=== PATIENT | male | born 1960 | race African-American/Black ===

== ENCOUNTER 2016-03-28 15:27 | Observation (INO) | payer OTHER ==
[2016-03-28 15:37] VITALS: BMI 33.5
[2016-03-28] MEDS ORDERED: KETOROLAC TROMETHAMINE 30 MG/1 ML VIAL IVPUSH ONE (17:04)
[2016-03-28] MEDS ORDERED: KETOROLAC TROMETHAMINE 30 MG/1 ML VIAL ONE (17:18)
[2016-03-28] MEDS ORDERED: KETOROLAC TROMETHAMINE 30 MG/1 ML VIAL IM ONE (17:32)
[2016-03-28 17:38] LABS: BASOPHIL 0.4 % (0-2.0); EOSINOPHIL 0.2 % (0-4.5); MCH 27.7 pg (25.7-33.7); MCHC 31.7 g/dl (32.0-35.9); MEAN CELL VOLUME 87.2 fl (80-96); MEAN PLT VOLUME 8.2 fl (7.5-11.1); NEUTROPHILS 76.3 % (42.8-82.8); PLATELET COUNT 305 K/MM3 (134-434); RDW 13.7 % (11.9-15.9); WHITE BLOOD COUNT 8.9 K/mm3 (4.0-10.0)
[2016-03-28 18:02] LABS: ALBUMIN 3.9 g/dl (3.4-5.0); ANION GAP 3 (8-16); CALCIUM 8.8 mg/dL (8.5-10.1); CO2 29 mmol/L (21-32); CREATININE 1.1 mg/dL (0.7-1.3); GLUCOSE,RANDOM 96 mg/dL (74-106); SGOT/AST 17 U/L (15-37); SGPT/ALT 21 U/L (12-78); URIC ACID 6.3 mg/dL (2.6-7.2)
[2016-03-28 18:03] LABS: ALK PHOS 60 U/L (45-117); BILIRUBIN,TOTAL 0.4 mg/dL (0.2-1.0); TOT PROT 7.1 g/dl (6.4-8.2)
--- NOTE | 2016-03-28 18:05 | PDOC ---
History of Present Illness - General History Source: Patient Exam Limitations: No Limitations - History of Present Illness Initial Comments: 03/28/16 18:44 The patient is a 57-year-old male, with a significant past medical history of gout, hyperlipidemia, and prostate cancer, who presents to the emergency department with left foot swelling and pain since yesterday. The patient states that the left foot swelling has worsened since last night, and he is unable to walk on the left foot due to the swelling, pain, and acid buildup. He reports that he has not taken medications for relief. His last flare of these symptoms was 3 years ago. The patient denies chest pain, shortness of breath, headache and dizziness. The patient denies fever, chills, nausea, vomit, diarrhea and constipation. The patient denies dysuria, frequency, urgency and hematuria. Allergies: codeine, oxycodone Social history: Occasional ETOH use. PMD - Dr. Holly Earl <Jewell Ordoñez - Last Filed: 03/28/16 18:43> <Dorcas Ochoa - Last Filed: 03/28/16 22:03> - General History Source: Patient Exam Limitations: No Limitations <Mar Sharp - Last Filed: 03/31/16 10:32> - General Chief Complaint: Edema Stated Complaint: PAIN Time Seen by Provider: 03/28/16 16:04 Past History <Jewell Ordoñez - Last Filed: 03/28/16 18:43> <Dorcas Ochoa - Last Filed: 03/28/16 22:03> - Past Medical History Cancer: Yes (prostate) GI Disorders: Yes (H/O DIVERTICULITIS) - Surgical History Abdominal Surgery: Yes (COLOSTOMY & REVERSAL) - Immunization History Immunization Up to Date: Yes - Psycho/Social/Smoking Cessation Hx Anxiety: No Suicidal Ideation: No Smoking History: Never smoked Have you smoked in the past 12 months: No Information on smoking cessation initiated: No Hx Alcohol Use: Yes (social) Drug/Substance Use Hx: No Substance Use Type: None Hx Substance Use Treatment: No <Mar Sharp - Last Filed: 03/31/16 10:32> - Past Medical History Allergies/Adverse Reactions: Allergies Allergy/AdvReac Type Severity Reaction Status Date / Time codeine Allergy Mild "makes me Verified 03/28/16 15:37 itch" oxycodone HCl Allergy Mild "gets me Verified 03/28/16 15:37 [From OxyContin] dizzy" Home Medications: Ambulatory Orders Tamsulosin HCl [Flomax -] 0.4 mg PO HS 03/02/15 Indomethacin [Indocin -] 50 mg PO Q8H #28 capsule 03/29/16 Pantoprazole Sodium [Protonix -] 40 mg PO DAILY #10 tablet.ec 03/29/16 Walker [Ultra-Light Rollator] 1 each MC DAILY #1 each 03/29/16 Review of Systems - Review of Systems Able to Perform ROS?: Yes Comments:: 03/28/16 18:46 GENERAL/CONSTITUTIONAL: No: fever, chills, weakness, loss of appetite. HEAD, EYES, EARS, NOSE AND THROAT: No: change in vision, ear pain, discharge, sore throat, throat swelling. CARDIOVASCULAR: No: chest pain, lightheadedness, palpitations, syncope RESPIRATORY: No: cough, shortness of breath, wheezing, hemoptysis, stridor. GASTROINTESTINAL: No: nausea, vomiting, abdominal cramping, diarrhea, rectal bleeding, constipation. GENITOURINARY: No: dysuria, hematuria, frequency, urgency, flank pain. MUSCULOSKELETAL: Present: (+) Left foot swelling, (+) left foot pain No: back pain, neck pain, joint pain SKIN AND BREASTS: No: lesions, pallor, rash or easy bruising. NEUROLOGIC: No: headache, vertigo, paresthesias, weakness ENDOCRINE: No: unexplained weight gain or loss HEMATOLOGIC/LYMPHATIC: No: anemia, easy bleeding, swelling nodes <Ordoñez,Jewell - Last Filed: 03/28/16 18:43> *Physical Exam - Vital Signs Last Vital Signs Temp Pulse Resp BP Pulse Ox 99.8 F H 75 18 136/84 99 03/28/16 15:35 03/28/16 15:35 03/28/16 15:35 03/28/16 15:35 03/28/16 15:35 - Physical Exam Comments: 03/28/16 18:46 GENERAL: The patient is in no acute distress. HEAD: Normal with no signs of trauma. EYES: PERRLA, EOMI, sclera anicteric, conjunctiva clear. ENT: Ears normal, nares patent, oropharynx clear without exudates. Moist mucous membranes. NECK: Normal range of motion, supple without lymphadenopathy, JVD, or masses. LUNGS: Breath sounds equal, clear to auscultation bilaterally. No wheezes, and no crackles. HEART:Regular rate and rhythm, normal S1 and S2 without murmur, rub or gallop. ABDOMEN: Soft, nontender, normoactive bowel sounds. No guarding, no rebound. EXTREMITIES: (+) Left ankle swelling, left toe swelling, mild erythema, pain with motion, DP 2+. No clubbing or cyanosis. NEUROLOGICAL: Cranial nerves II through XII grossly intact. Normal speech. No focal neurological deficits. MUSCULOSKELETAL: Back non-tender to palpation, no CVA tenderness SKIN: Warm, Dry, normal turgor, no rashes or lesions noted. <Jewell Ordoñez - Last Filed: 03/28/16 18:43> - Vital Signs Last Vital Signs Temp Pulse Resp BP Pulse Ox 99.8 F H 75 18 136/84 99 03/28/16 15:35 03/28/16 15:35 03/28/16 15:35 03/28/16 15:35 03/28/16 15:35 <Dorcas Ochoa - Last Filed: 03/28/16 22:03> - Vital Signs Last Vital Signs Temp Pulse Resp BP Pulse Ox 99.8 F H 75 18 136/84 99 03/28/16 15:35 03/28/16 15:35 03/28/16 15:35 03/28/16 15:35 03/28/16 15:35 <Mar Sharp - Last Filed: 03/31/16 10:32> ED Treatment Course - LABORATORY CBC & Chemistry Diagram: 03/28/16 17:22 03/28/16 17:22 - ADDITIONAL ORDERS Additional order review: Laboratory Results 03/28/16 17:22 Sodium 137 Potassium 4.2 Chloride 105 Carbon Dioxide 29 Anion Gap 3 L BUN 20 H Creatinine 1.1 Creat Clearance w eGFR > 60 Random Glucose 96 Uric Acid 6.3 Calcium 8.8 Total Bilirubin 0.4 D AST 17 ALT 21 D Alkaline Phosphatase 60 Total Protein 7.1 Albumin 3.9 03/28/16 17:22 RBC 4.73 MCV 87.2 MCHC 31.7 L RDW 13.7 MPV 8.2 Neutrophils % 76.3 Lymphocytes % 17.3 D Monocytes % 5.8 Eosinophils % 0.2 D Basophils % 0.4 - Medications Given in the ED: ED Medications Discontinued Medications Generic Name Dose Route Start Last Admin Trade Name Freq PRN Reason Stop Dose Admin Ketorolac Tromethamine 30 mg 03/28/16 17:04 03/28/16 17:33 Toradol Injection - IVPUSH 03/28/16 17:05 Not Given ONCE ONE Ketorolac Tromethamine 30 mg 03/28/16 17:32 03/28/16 17:32 Toradol Injection - IM 03/28/16 17:33 30 mg NOW ONE Administration <Jewell Ordoñez - Last Filed: 03/28/16 18:43> - LABORATORY CBC & Chemistry Diagram: 03/28/16 17:22 03/28/16 17:22 - ADDITIONAL ORDERS Additional order review: Laboratory Results 03/28/16 17:22 Sodium 137 Potassium 4.2 Chloride 105 Carbon Dioxide 29 Anion Gap 3 L BUN 20 H Creatinine 1.1 Creat Clearance w eGFR > 60 Random Glucose 96 Uric Acid 6.3 Calcium 8.8 Total Bilirubin 0.4 D AST 17 ALT 21 D Alkaline Phosphatase 60 Total Protein 7.1 Albumin 3.9 03/28/16 17:22 RBC 4.73 MCV 87.2 MCHC 31.7 L RDW 13.7 MPV 8.2 Neutrophils % 76.3 Lymphocytes % 17.3 D Monocytes % 5.8 Eosinophils % 0.2 D Basophils % 0.4 - Medications Given in the ED: ED Medications Discontinued Medications Generic Name Dose Route Start Last Admin Trade Name Freq PRN Reason Stop Dose Admin Ketorolac Tromethamine 30 mg 03/28/16 17:04 03/28/16 17:33 Toradol Injection - IVPUSH 03/28/16 17:05 Not Given ONCE ONE Ketorolac Tromethamine 30 mg 03/28/16 17:32 03/28/16 17:32 Toradol Injection - IM 03/28/16 17:33 30 mg NOW ONE Administration <Dorcas Ochoa - Last Filed: 03/28/16 22:03> - LABORATORY CBC & Chemistry Diagram: 03/29/16 06:00 03/29/16 06:00 - ADDITIONAL ORDERS Additional order review: Laboratory Results 03/28/16 17:22 Sodium 137 Potassium 4.2 Chloride 105 Carbon Dioxide 29 Anion Gap 3 L BUN 20 H Creatinine 1.1 Creat Clearance w eGFR > 60 Random Glucose 96 Uric Acid 6.3 Calcium 8.8 Total Bilirubin 0.4 D AST 17 ALT 21 D Alkaline Phosphatase 60 Total Protein 7.1 Albumin 3.9 03/28/16 17:22 RBC 4.73 MCV 87.2 MCHC 31.7 L RDW 13.7 MPV 8.2 Neutrophils % 76.3 Lymphocytes % 17.3 D Monocytes % 5.8 Eosinophils % 0.2 D Basophils % 0.4 - RADIOLOGY Radiology Studies Ordered: Category Date Time Status ANKLE & FOOT-LEFT* [RAD] Stat Radiology 03/28/16 16:58 Taken - Medications Given in the ED: ED Medications Discontinued Medications Generic Name Dose Route Start Last Admin Trade Name Hua PRN Reason Stop Dose Admin Ketorolac Tromethamine 30 mg 03/28/16 17:04 03/28/16 17:33 Toradol Injection - IVPUSH 03/28/16 17:05 Not Given ONCE ONE Ketorolac Tromethamine 30 mg 03/28/16 17:32 03/28/16 17:32 Toradol Injection - IM 03/28/16 17:33 30 mg NOW ONE Administration <Mar Sharp - Last Filed: 03/31/16 10:32> Medical Decision Making - Medical Decision Making 03/28/16 20:21 Patient Name: Ricki Larkin THIS IS A PRELIMINARY REPORT FROM [facility] EXAM: Left ankle X-rays, 3 views and left foot x-rays, 3 views IMAGES: 5 DATE OF EXAM: 2016-03-28 17:39:21.0 REASON FOR EXAM: Pain COMPARISON: None Findings: Hallux valgus with bunion. Degenerative changes noted. Moderate soft tissue edema around the ankle and foot. There may be an old fracture of the middle phalanx of the little toe. No acute fracture or radiopaque foreign body. THIS DOCUMENT HAS BEEN ELECTRONICALLY SIGNED <Dorcas Ochoa - Last Filed: 03/28/16 22:03> - Medical Decision Making 03/28/16 18:05 A portion of this note was documented by scribe services under my direction. I have reviewed the details of the note, within reason, and agree with the documentation with the following case summary and management plan written by me. Nursing documentation reviewed and incorporated into medical decision making 03/28/16 18:07 Laboratory Tests 03/28/16 03/28/16 17:22 17:22 WBC 8.9 Hgb 13.1 Hct 41.3 Plt Count 305 Neutrophils % 76.3 Lymphocytes % 17.3 D Sodium 137 Potassium 4.2 Chloride 105 Carbon Dioxide 29 BUN 20 H Creatinine 1.1 Random Glucose 96 Xray pending Pt given Toradol Will re assess Pending Uric Acid Pt signed out to Dr. Ochoa <Mar Sharp - Last Filed: 03/31/16 10:32> *DC/Admit/Observation/Transfer - Attestations Scribe Attestion: 03/28/16 18:47 Documentation prepared by Jewell Ordoñez, acting as medical assistant per diem for Mar Sharp MD. <Jewell Ordoñez - Last Filed: 03/28/16 18:43> - Discharge Dispostion Admit: Yes <Dorcas Ochoa - Last Filed: 03/28/16 22:03> <Mar Sharp - Last Filed: 03/31/16 10:32> Diagnosis at time of Disposition: Cellulitis of foot, Inability to ambulate due to ankle or foot, Swelling of foot joint - Discharge Dispostion Condition at time of disposition: Stable - Prescriptions - Referrals
[2016-03-28] MEDS ORDERED: CEFAZOLIN 1 GM in DEXTROSE 5%-WATER - 50 ML IVPB ONE (20:56)
--- NOTE | 2016-03-28 21:08 | HP ---
CHIEF COMPLAINT: Left foot, ankle pain, swelling PCP: Dr. Holly Earl HISTORY OF PRESENT ILLNESS: This is a 55 year old male with a past medical history of Gout (no meds, last flare 3 yrs ago), HLD, Prostate Cancer (treated with seed implantation), Diverticulitis. PSHx of: Intestinal Resection, Colostomy, Colostomy Reversal. Who presents to the emergency department with pain, swelling x 2 days and inability to ambulate and bear weight x today. Patient reports drinking to beers which he attributes to "Gout Flare". Patient denies trauma, fall or insect bite. Patient denies fever, chills, cough, SOB, CP, AP, N/V/D, constipation, melena, hematuria, dysuria ER course was notable for: (1) T Max 99.8 (2) Xray Left ankle/foot~ moderate soft tissue edema around ankle, foot. No acute fx or radiopaque FB (3) Recent Travel: None PAST MEDICAL HISTORY: See HPI PAST SURGICAL HISTORY: See HPI Social History: Smoking: None Alcohol: Occasional Beer Drugs: None Family History: Mother: Lung Ca, Brother: Prostate Ca, Allergies codeine Allergy (Mild, Verified 03/28/16 15:37) "makes me itch" oxycodone HCl [From OxyContin] Allergy (Mild, Verified 03/28/16 15:37) "gets me dizzy" HOME MEDICATIONS: Medication Instructions Recorded Tamsulosin HCl [Flomax -] 0.4 mg PO HS 03/02/15 Acetaminophen [Tylenol -] 500 mg PO Q6H #100 tablet 06/29/15 REVIEW OF SYSTEMS CONSTITUTIONAL: Absent: fever, chills, diaphoresis, generalized weakness, malaise, loss of appetite, weight change HEENT: Absent: rhinorrhea, nasal congestion, throat pain, throat swelling, difficulty swallowing, mouth swelling, ear pain, eye pain, visual changes CARDIOVASCULAR: Absent: chest pain, syncope, palpitations, irregular heart rate, lightheadedness , peripheral edema RESPIRATORY: Absent: cough, shortness of breath, dyspnea with exertion, orthopnea, wheezing, stridor, hemoptysis GASTROINTESTINAL: Absent: abdominal pain, abdominal distension, nausea, vomiting, diarrhea, constipation, melena, hematochezia GENITOURINARY: Absent: dysuria, frequency, urgency, hesitancy, hematuria, flank pain, genital pain MUSCULOSKELETAL: joint swelling, left ankle, foot pain Absent: myalgia, arthralgia, back pain, neck pain SKIN: Absent: rash, itching, pallor HEMATOLOGIC/IMMUNOLOGIC: Absent: easy bleeding, easy bruising, lymphadenopathy, frequent infections ENDOCRINE: Absent: unexplained weight gain, unexplained weight loss, heat intolerance, cold intolerance NEUROLOGIC: Absent: headache, focal weakness or paresthesias, dizziness, unsteady gait, seizure, mental status changes, bladder or bowel incontinence PSYCHIATRIC: Absent: anxiety, depression, suicidal or homicidal ideation, hallucinations. PHYSICAL EXAMINATION Vital Signs - 24 hr 03/28/16 15:35 Temperature 99.8 F H Pulse Rate 75 Respiratory 18 Rate Blood Pressure 136/84 O2 Sat by Pulse 99 Oximetry (%) GENERAL: Awake, alert, and fully oriented, in no acute distress. HEAD: Normal with no signs of trauma. EYES: Pupils equal, round and reactive to light, extraocular movements intact, sclera anicteric, conjunctiva clear. No lid lag. EARS, NOSE, THROAT: Ears normal, nares patent, oropharynx clear without exudates. Moist mucous membranes. NECK: Normal range of motion, supple without lymphadenopathy, JVD, or masses. LUNGS: Breath sounds equal, clear to auscultation bilaterally. No wheezes, and no crackles. No accessory muscle use. HEART: Regular rate and rhythm, normal S1 and S2 without murmur, rub or gallop. ABDOMEN: Soft,obese, nontender, not distended, normoactive bowel sounds, no guarding, no rebound, no masses. No hepatomegaly or splenomegaly. MUSCULOSKELETAL: Normal range of motion at all joints. No bony deformities, + slight swelling to left patellar, +tenderness to left medial ankle and left great toe. No CVA tenderness. UPPER EXTREMITIES: 2+ pulses, warm, well-perfused. No cyanosis. No clubbing. Cap refill <2 seconds. No peripheral edema. LOWER EXTREMITIES: 2+ pulses, warm, well-perfused. No calf tenderness. Left ankle +2 peripheral edema. NEUROLOGICAL: Cranial nerves II-XII intact. Normal speech. Normal gait. PSYCHIATRIC: Cooperative. Good eye contact. Appropriate mood and affect. SKIN: Warm, dry, normal turgor, mild erythema to dorsal aspect of left foot. no rashes or lesions noted. Laboratory Results - last 24 hr 03/28/16 03/28/16 17:22 17:22 WBC 8.9 RBC 4.73 Hgb 13.1 Hct 41.3 MCV 87.2 MCHC 31.7 L RDW 13.7 Plt Count 305 MPV 8.2 Neutrophils % 76.3 Lymphocytes % 17.3 D Monocytes % 5.8 Eosinophils % 0.2 D Basophils % 0.4 Sodium 137 Potassium 4.2 Chloride 105 Carbon Dioxide 29 Anion Gap 3 L BUN 20 H Creatinine 1.1 Creat Clearance w eGFR > 60 Random Glucose 96 Uric Acid 6.3 Calcium 8.8 Total Bilirubin 0.4 D AST 17 ALT 21 D Alkaline Phosphatase 60 Total Protein 7.1 Albumin 3.9 ASSESSMENT/PLAN: This is a 55 year old male with a PMHx of: Gout (no meds, last flare 3 yrs ago) , Prostate Ca (Treated Seed Implantation), HLD, Diverticulitis. Who presented to the ED with left foot and ankle pain, swelling, unable to bear weight. Placed on observation for Acute Gout for further evaluation of their emergent condition. Plan: 1. Acute Gout - Likely secondary to beer ingestion - On exam: +edema, erythema, tenderness to left medial ankle and left great toe - Toradol given in ED - Will start on NSAIDs- indomethacin - Elevate extremity - Ancef given in ED empirically for ?cellulitis - Patient is febrile, without leukocytosis, not likely cellulitis, will hold empiric ABX for now and continue to monitor. - Uric Acid 6.3 - ESR pending - Monitor CBC - Monitor vitals 2. Prostate Ca - s/p Seed Implantation treatment - in remission per patient - f/u with urology in outpatient 3. F/E/N - PO Fluids - Replete lytes prn - Low Cholesterol Diet 4. DVT/PPI Prophylaxis - OOB - SCDs - Consider AC if LOS > 48 hrs 5. Code Status: Patient is a Full Code Problem List - Problem (1) Gout flare Code(s): M10.9 - GOUT, UNSPECIFIED Qualifiers: Encounter type: initial encounter (2) Inability to ambulate due to ankle or foot Code(s): R26.2 - DIFFICULTY IN WALKING, NOT ELSEWHERE CLASSIFIED (3) Swelling of foot joint Code(s): M25.476 - EFFUSION, UNSPECIFIED FOOT (4) History of gout Code(s): Z87.39 - PERSONAL HISTORY OF DISEASES OF THE MS SYS AND CONN TISS (5) History of prostate cancer Code(s): Z85.46 - PERSONAL HISTORY OF MALIGNANT NEOPLASM OF PROSTATE (6) DVT prophylaxis Code(s): IWL9493 - Visit type - Emergency Visit Emergency Visit: Yes ED Registration Date: 03/28/16 Care time: The patient presented to the Emergency Department on the above date and was hospitalized for further evaluation of their emergent condition. - New Patient This patient is new to me today: Yes Date on this admission: 03/28/16 - Critical Care Critical Care patient: No
[2016-03-28] MEDS ORDERED: CEFAZOLIN (PRE-DOCKED) 50 ML IVPB ONE (21:17)
[2016-03-29] MEDS: INDOMETHACIN 50 MG CAPSULE PO SCH ×2 (06:31→14:41)
[2016-03-29 07:33] LABS: BASOPHIL 0.4 % (0-2.0); EOSINOPHIL 0.9 % (0-4.5); MCH 28.6 pg (25.7-33.7); MCHC 32.9 g/dl (32.0-35.9); MEAN PLT VOLUME 7.6 fl (7.5-11.1); NEUTROPHILS 57.9 % (42.8-82.8); PLATELET COUNT 304 K/MM3 (134-434); RDW 13.3 % (11.9-15.9); WHITE BLOOD COUNT 6.5 K/mm3 (4.0-10.0)
[2016-03-29 07:49] LABS: CALCIUM 8.6 mg/dL (8.5-10.1); CREATININE 1.1 mg/dL (0.7-1.3)
[2016-03-29] MEDS ORDERED: TAMSULOSIN HCL 0.4 MG CAP.ER.24H (FP) PO SCH (08:30)
[2016-03-29] MEDS ORDERED: TAMSULOSIN HCL 0.4 MG CAP.ER.24H (FP) ONE (09:37)
[2016-03-29 09:43] VITALS: TEMP 98.5
--- NOTE | 2016-03-29 11:25 | EKG ---
Test Reason : Blood Pressure : / mmHG Vent. Rate : 076 BPM Atrial Rate : 076 BPM P-R Int : 160 ms QRS Dur : 100 ms QT Int : 376 ms P-R-T Axes : 045 022 031 degrees QTc Int : 423 ms NORMAL SINUS RHYTHM NORMAL ECG WHEN COMPARED WITH ECG OF 29-JUN-2015 01:53, NO SIGNIFICANT CHANGE WAS FOUND Confirmed by ELVA DANIELS MD ([id number]) on 03/29/2016 11:24:45 AM Referred By: Confirmed By:ELVA DANIELS MD
[2016-03-29 15:02] VITALS: BP 106/74; PULSE 65
--- NOTE | 2016-03-29 17:21 | DS ---
Physical Exam: SUBJECTIVE: Patient seen and examined OBJECTIVE: Vital Signs Period Temp Pulse Resp BP Sys/Mcgrath Pulse Ox Last 24 Hr 98.5 F 62-65 18-18 104-106/61-74 97-99 PHYSICAL EXAM GENERAL: The patient is awake, alert, and fully oriented, in no acute distress. HEAD: Normal with no signs of trauma. EYES: PERRL, extraocular movements intact, sclera anicteric, conjunctiva clear. ENT: Ears normal, nares patent, oropharynx clear without exudates, moist mucous membranes. NECK: Trachea midline, full range of motion, supple. LUNGS: Breath sounds equal, clear to auscultation bilaterally, no wheezes, no crackles, no accessory muscle use. HEART: Regular rate and rhythm, S1, S2 without murmur, rub or gallop. ABDOMEN: Soft, nontender, nondistended, normoactive bowel sounds, no guarding, no rebound, no hepatosplenomegaly, no masses. EXTREMITIES: 2+ pulses, warm, well-perfused, no edema. NEUROLOGICAL: Cranial nerves II through XII grossly intact. Normal speech, gait not observed. PSYCH: Normal mood, normal affect. SKIN: Warm, dry, normal turgor, no rashes or lesions noted. LABS Laboratory Results - last 24 hr 03/29/16 03/29/16 03/29/16 06:00 06:00 06:00 WBC 6.5 RBC 4.03 Hgb 11.5 L D Hct 35.0 L D MCV 87.0 MCHC 32.9 RDW 13.3 Plt Count 304 MPV 7.6 Neutrophils % 57.9 D Lymphocytes % 31.3 D Monocytes % 9.5 Eosinophils % 0.9 D Basophils % 0.4 ESR 29 H Sodium 138 Potassium 4.1 Chloride 107 Carbon Dioxide 27 Anion Gap 4 L BUN 20 H Creatinine 1.1 Random Glucose 98 Calcium 8.6 HOSPITAL COURSE: Date of Admission:03/28/16 Date of Discharge: 03/29/16 Discharge Summary Reason For Visit: LEFT FOOT CELLUITITIS Current Active Problems ROHAN (acute kidney injury) (Acute) Cellulitis of foot (Acute) DVT prophylaxis (Acute) Gout flare (Acute) Hematuria (Acute) Inability to ambulate due to ankle or foot (Acute) Leukocytosis (Acute) Nausea & vomiting (Acute) Swelling of foot joint (Acute) History of gout (Chronic) History of prostate cancer (Chronic) Condition: Stable - Instructions Diet, Activity, Other Instructions: Please return to the ED for any new, persistent, or worsening symptoms. Follow up with your PCP in 5 days for blood level checks, tell your doctor to check your BMP and monitor your kidney function while you are taking indomethacin for your gout. Take protonix as directed until you finish the indomethacin. Use rolling walker as long as you need for stabilization Referrals: Holly Earl [Primary Care Provider] - Disposition: HOME - Home Medications Comprehensive Discharge Medication List: Ambulatory Orders Tamsulosin HCl [Flomax -] 0.4 mg PO HS 03/02/15 Indomethacin [Indocin -] 50 mg PO Q8H #28 capsule 03/29/16 Pantoprazole Sodium [Protonix -] 40 mg PO DAILY #10 tablet.ec 03/29/16 Walker [Ultra-Light Rollator] 1 each MC DAILY #1 each 03/29/16
== END 2016-03-29 13:00 | disposition home or self-care (01) ==
LOC: JER 15:27 → JERBED 22:40 → INTOOBSV 22:40 → UNDOADMOB 22:40 → JERBED 22:50
PROVIDERS: ADMIT Internal Medicine; ATTEND Nurse Practitioner Family
DX: L03.116 Cellulitis of left lower limb (principal); E78.5 Hyperlipidemia, unspecified; M10.9 Gout, unspecified; Z85.46 Personal history of malignant neoplasm of prostate
CPT/HCPCS: 36415; 73610-TC-LT; 73630-TC-LT; 80048; 80053; 84550; 85025; 85651; 93005; 93010; 97116-GP; 97163-GP; 99284-25; G0378

== ENCOUNTER 2016-04-16 02:40 | Emergency (ER) | payer OTHER ==
[2016-04-16 03:04] VITALS: BP 103/58; PULSE 64; TEMP 98.1; BMI 33.5
[2016-04-16] MEDS ORDERED: SODIUM CHLORIDE 500 ML IV STA (03:52)
[2016-04-16 05:28] LABS: BASOPHIL 0.4 % (0-2.0); MCHC 32.7 g/dl (32.0-35.9); MEAN CELL VOLUME 85.5 fl (80-96); MEAN PLT VOLUME 7.5 fl (7.5-11.1); PLATELET COUNT 408 K/MM3 (134-434); RDW 13.4 % (11.9-15.9); WHITE BLOOD COUNT 11.7 K/mm3 (4.0-10.0)
--- NOTE | 2016-04-16 05:28 | PDOC ---
History of Present Illness - General Chief Complaint: Pain, Acute Stated Complaint: KNEE PAIN Time Seen by Provider: 04/16/16 03:06 History Source: Patient Exam Limitations: No Limitations - History of Present Illness Initial Comments: 04/16/16 05:21 55yo Male patient presents to ED c/o left knee pain and swelling. Patient states he has history of gout, and was recently admitted for gout of left foot. Patient reports he was sent home on medications for gout but elected not to take it as it was prescribed every 8 hours and made him sick to his stomach. He did not follow up with his PCP. Denies trauma, injury, fall, or any other complaints at this time. Occurred: reports: other (3 days) Severity: Yes: severe Lower Extremity Pain Location: left: knee Method of Injury: Yes: other (Gout) Modifying Factors: improves with: immobilization Lower Ext. Injury Location - Specific Injury Location Knees: right normal range of motion, right non-tender, right normal inspection, left soft tissue tenderness, left joint effusion, left swelling, left pain, bilateral no evidence of injury Extremity Pain Location - Extremity Pain Location Extremity Pain Locations: left: leg Past History - Travel Traveled outside of the country in the last 30 days: No Close contact w/someone who was outside of country & ill: No - Past Medical History Allergies/Adverse Reactions: Allergies Allergy/AdvReac Type Severity Reaction Status Date / Time codeine Allergy Mild "makes me Verified 03/28/16 15:37 itch" oxycodone HCl Allergy Mild "gets me Verified 03/28/16 15:37 [From OxyContin] dizzy" Home Medications: Ambulatory Orders Tamsulosin HCl [Flomax -] 0.4 mg PO HS 03/02/15 Indomethacin [Indocin -] 50 mg PO Q8H #28 capsule 03/29/16 Pantoprazole Sodium [Protonix -] 40 mg PO DAILY #10 tablet.ec 03/29/16 Walker [Ultra-Light Rollator] 1 each MC DAILY #1 each 03/29/16 Cephalexin Monohydrate [Keflex -] 500 mg PO BID #20 capsule 04/16/16 Ibuprofen 600 mg PO Q6H PRN #30 tablet 04/16/16 Tramadol HCl 50 mg PO Q6H PRN #15 tablet MDD 4 TABS 04/16/16 Cancer: Yes (prostate) GI Disorders: Yes (H/O DIVERTICULITIS) Other medical history: gout - Surgical History Abdominal Surgery: Yes (COLOSTOMY & REVERSAL) - Immunization History Immunization Up to Date: Yes - Psycho/Social/Smoking Cessation Hx Anxiety: No Suicidal Ideation: No Smoking History: Never smoked Have you smoked in the past 12 months: No Information on smoking cessation initiated: No Hx Alcohol Use: (social) Drug/Substance Use Hx: No Substance Use Type: None Hx Substance Use Treatment: No Review of Systems - Review of Systems Able to Perform ROS?: Yes Is the patient limited [place]serratian proficient: No Constitutional: No: Chills, Fever HEENTM: No: Blurred Vision, Double Vision, Nose Congestion, Throat Pain Respiratory: No: Cough, Orthopnea, Shortness of Breath, Stridor, Wheezing Cardiac (ROS): No: Chest Pain, Edema, Palpitations, Syncope ABD/GI: No: Constipated, Diarrhea, Nausea, Poor Appetite, Poor Fluid Intake, Vomiting : No: Burning, Dysuria, Frequency, Flank Pain, Hematuria, Pain Musculoskeletal: Yes: Gout, Joint Pain, Joint Swelling. No: Back Pain Integumentary: No: Bruising, Erythema, Rash Neurological: No: Headache, Numbness, Paresthesia, Seizure, Tingling, Tremors, Weakness, Unsteady Gait, Ataxia, Dizziness All Other Systems: Reviewed and Negative *Physical Exam - Vital Signs Last Vital Signs Temp Pulse Resp BP Pulse Ox 98.1 F 64 18 103/58 98 04/16/16 03:02 04/16/16 03:02 04/16/16 03:02 04/16/16 03:02 04/16/16 03:02 - Physical Exam General Appearance: Yes: Nourished, Appropriately Dressed, Apparent Distress, Moderate Distress HEENT: positive: EOMI, AGBRIELLA, Normal ENT Inspection, Normal Voice, Symmetrical, Pharynx Normal. negative: Nasal Congestion, Rhinorrhea, TM Bulging, TM Dull, TM Erythema Neck: positive: Trachea midline, Supple. negative: Decreased range of motion, Stridor Respiratory/Chest: positive: Lungs Clear, Normal Breath Sounds. negative: Respiratory Distress, Accessory Muscle Use, Labored Respiration, Rapid RR Cardiovascular: positive: Regular Rhythm, Regular Rate. negative: Edema, JVD, Murmur Gastrointestinal/Abdominal: positive: Normal Bowel Sounds, Soft. negative: Increased Bowel Sounds, Distended, Guarding, Rebound, Tenderness Extremity: positive: Normal Capillary Refill, Normal Inspection, Swelling, Other (Severe Pain and tenderness to Lt Knee with increased warmth in comparison to right knee.). negative: Normal Range of Motion Integumentary: positive: Normal Color, Dry, Warm. negative: Erythema Neurologic: positive: pan devulcanizer helper II-XII NML intact, Fully Oriented, Alert, Normal Mood/ Affect, Normal Response ED Treatment Course - LABORATORY CBC & Chemistry Diagram: 04/16/16 04:59 04/16/16 04:59 - RADIOLOGY Radiology Studies Ordered: Category Date Time Status KNEE 3 POS-LEFT [RAD] Stat Radiology 04/16/16 03:52 Taken - Medications Given in the ED: ED Medications Discontinued Medications Generic Name Dose Route Start Last Admin Trade Name Freq PRN Reason Stop Dose Admin Sodium Chloride 500 mls @ 500 mls/hr 04/16/16 03:52 04/16/16 05:00 Normal Saline - IV 04/16/16 04:51 500 mls/hr ASDIR STA Administration Progress Note - Progress Note Progress Note: SPOKE WITH DR. MENDEZ REGARDING ADMISSION VS OUTPATIENT THERAPY. PATIENT TO MANAGE SYMPTOMS OUTPATIENT. KNEE IMMOBILIZER AND CRUTCHES TO BE GIVEN. D/C HOME ON ABX AND PAIN MEDICATIONS. *DC/Admit/Observation/Transfer Diagnosis at time of Disposition: Knee effusion, left Knee pain, left Qualifiers: Chronicity: acute Qualified Code(s): M25.562 - Pain in left knee - Discharge Dispostion Disposition: HOME Condition at time of disposition: Stable Admit: No - Prescriptions Prescriptions: Ibuprofen 600 mg PO Q6H PRN #30 tablet PRN Reason: Mild Pain Cephalexin Monohydrate [Keflex -] 500 mg PO BID #20 capsule Tramadol HCl 50 mg PO Q6H PRN #15 tablet MDD 4 TABS PRN Reason: Severe Pain - Referrals Referrals: Braden Munguia MD [Primary Care Provider] - Jovani Crane MD [Staff Physician] - - Patient Instructions Printed Discharge Instructions: DI for Knee Effusion Additional Instructions: FOLLOW UP WITH DR. CRANE (ORTHOPEDIC) NEXT WEEK. CALL TO SCHEDULE APPOINTMENT TODAY. TAKE MEDICATIONS PRESCRIBED WITH FOOD. KEEP KNEE IMMOBILIZER APPLIED WHILE OUT OF BED AND USE CRUTCHES FOR ASSISTANCE WITH AMBULATION. WHILE RESTING ELEVATED LEG AND APPLY COLD COMPRESS EVERY 4 HOUR FOR 10-15 MINS ON AND OFF. YOU MUST FOLLOW UP WITH AN ORTHOPEDIST TO TREAT CONDITION. Print Language: TURKISH - Post Discharge Activity Work/School Note: Back to Work
[2016-04-16 05:49] LABS: ANION GAP 10 (8-16); BILIRUBIN,TOTAL 0.9 mg/dL (0.2-1.0); CALCIUM 9.2 mg/dL (8.5-10.1); CO2 29 mmol/L (21-32); CREATININE 1.2 mg/dL (0.7-1.3); GLUCOSE,RANDOM 120 mg/dL (74-106); SGOT/AST 21 U/L (15-37); SGPT/ALT 29 U/L (12-78); TOT PROT 7.7 g/dl (6.4-8.2); URIC ACID 6.3 mg/dL (2.6-7.2)
[2016-04-16 05:50] LABS: ALK PHOS 51 U/L (45-117)
[2016-04-16] MEDS ORDERED: KETOROLAC TROMETHAMINE 60 MG/2 ML VIAL IM ONE (06:29)
[2016-04-16] MEDS ORDERED: KETOROLAC TROMETHAMINE 30 MG/1 ML VIAL ONE (06:30)
== END 2016-04-16 07:01 | disposition home or self-care (01) ==
LOC: JER 02:40
PROC: 3E0337Z Introduction of Electrolytic and Water Balance Substance into Peripheral Vein, Percutaneous Approach (ICD-10-PCS; principal; 2016-04-16)
PROC: 3E0333Z Introduction of Anti-inflammatory into Peripheral Vein, Percutaneous Approach (ICD-10-PCS; 2016-04-16)
DX: M25.462 Effusion, left knee (principal); M10.9 Gout, unspecified; Z85.46 Personal history of malignant neoplasm of prostate; Z87.19 Personal history of other diseases of the digestive system
CPT/HCPCS: 36415; 73562-TC-LT; 80053; 84550; 85025; 99283-25

== ENCOUNTER 2018-07-22 13:10 | Inpatient (IN) | payer OTHER ==
[2018-07-21 17:39] VITALS: BMI 30.7
[2018-07-22] MEDS ORDERED: PROPOFOL 20 ML ONE (16:04)
[2018-07-22] MEDS ORDERED: ceFAZolin SODIUM 1 GM VIAL ONE (16:47)
[2018-07-22] MEDS ORDERED: ceFAZolin SODIUM 1 GM VIAL IVPB ONE (16:48)
[2018-07-22] MEDS ORDERED: ACETAMINOPHEN 325 MG TABLET (FP) PO PRN ×2 (16:57→18:26)
[2018-07-22] MEDS ORDERED: ONDANSETRON 4 MG/2 ML VIAL IVPUSH PRN (16:57)
[2018-07-22] MEDS ORDERED: LACTATED RINGERS SOLUTION 1,000 ML IV SCH (17:00)
[2018-07-22] MEDS ORDERED: KETOROLAC TROMETHAMINE 30 MG/1 ML VIAL ONE (17:28)
[2018-07-22] MEDS ORDERED: DEXAMETHASONE SOD PHOSPHATE 4 MG/1 ML VIAL ONE (17:29)
--- NOTE | 2018-07-22 18:24 | OP ---
Operative Note - Note: Operative Date: 07/22/18 Pre-Operative Diagnosis: large,multiple bladder stones Operation: cysto........., iou and laserlithotripsy Findings: 3 large bladder stone 6cm -8cm diam. Post-Operative Diagnosis: Same as Pre-op Filler Shaker: Dorita Munguia Anesthesia: General Specimens Removed: bladder stones Estimated Blood Loss (mls): 40 Drains, Volume Out (mls): 0 Blood Volume Replaced (mls): 0 Fluid Volume Replaced (mls): 0 Operative Report Dictated: Yes
[2018-07-22] MEDS ORDERED: HYDROmorphone HCl 2 MG/ML VIAL IM ONE (18:26)
[2018-07-22] MEDS ORDERED: MEPERIDINE HCL 25 MG/ML VIAL ONE (18:27)
[2018-07-22] MEDS ORDERED: MEPERIDINE HCL 25 MG/ML VIAL IVPUSH ONE (18:32)
[2018-07-22] MEDS ORDERED: ACETAMINOPHEN 1000 MG/100 ML VIAL (NON FORMULARY) IVPB ONE (18:50)
[2018-07-22] MEDS ORDERED: ACETAMINOPHEN INJECTION 100 ML IVPB ONE (18:58)
[2018-07-22] MEDS: DEXTROSE 5%-0.45% SALINE 1,000 ML IV SCH ×2 (20:00→23:20)
[2018-07-22] MEDS ORDERED: HYDROmorphone HCl 2 MG/ML VIAL IVPB PRN (20:06)
--- NOTE | 2018-07-22 20:14 | PN ---
Progress Note (short form) - Note Progress Note: s/p cysto and bladder laser lithotripsy . pt. with bladder spasms and shivering , vss, will keep overnight for observation. will get id consult to r/o sepsis
[2018-07-22] MEDS ORDERED: CEFTRIAXONE 1 GM in DEXTROSE 5%-WATER - 50 ML IVPB SCH (21:45)
[2018-07-22 21:59] LABS: EOS % 0.1 % (0-4.5); HEMOGLOBIN 11.7 GM/dL (11.7-16.9); MONO % 2.8 % (3.8-10.2); WHITE BLOOD COUNT 9.4 K/mm3 (4.0-10.0)
[2018-07-22 22:05] LABS: BASO % 0.1 % (0-2.0); HEMATOCRIT 36.4 % (35.4-49); LYMPH % 7.2 % (8-40); MCH 28.3 pg (25.7-33.7); MCHC 32.2 g/dl (32.0-35.9); MEAN CELL VOLUME 87.9 fl (80-96); MEAN PLT VOLUME 7.6 fl (7.5-11.1); NEUT % 89.8 % (42.8-82.8); PLATELET COUNT 278 K/MM3 (134-434); RBC 4.14 M/mm3 (4.00-5.60)
--- NOTE | 2018-07-22 22:08 | PN ---
Teaching Attending Note Name of Resident: Kelton Blackwell ATTENDING PHYSICIAN STATEMENT I saw and evaluated the patient. I reviewed the resident's note and discussed the case with the resident. I agree with the resident's findings and plan as documented. SUBJECTIVE: Seen and examined; please refer to resident note for further historical information. Briefly, this is a 58 y/o male presenting to the medicine service as a consult from Dr. Munguia postoperatively for suspected sepsis; he is s/p cysto and bladder laser lithotripsy and was seen to have bladder spasms and to be shivering in the PACU; I am told from PACU nursing that the stones appeared infected. In the PAC he was given empiric abx as documented by sgy and given fluids. When we encountered him in the PACU he was still somnolent from the anesthesia and could not provide any history. ID has been consulted by his surgeon; appreciate expert opinion. He is afebrle, not tachycardic, normal blood pressure. Labs pending 10 sys ROS done and negative aside from HPI PMH, PSH, FH, SH reviewed Home Medications Medication Instructions Recorded Ibuprofen 600 mg PO Q6H PRN #30 tablet 04/16/16 Allopurinol [Zyloprim -] 100 mg PO DAILY 07/21/18 Ferrous Sulfate [Iron] 325 mg PO DAILY 07/21/18 OBJECTIVE: VS, labs, imaging reviewed NAD, somnolent from anesthesia but protecting his airway NC AT EOMI PERRLA RRR s1/2 no mgr Lungs CTAB, w/ sym exp NT ND +BS; postsurgical scars on abdomen CN2-12 wnl, no fnd Normal mood, appropriate behavior Telemetry reviewed; NSR. EKG pending CXR pending Gout (no meds, last flare 3 yrs ago), HLD, Prostate Cancer (treated with seed implantation), Diverticulitis. PSHx of: Intestinal Resection, Colostomy, Colostomy Reversal ASSESSMENT AND PLAN: Patient presents to the medicine service as a consult from Dr. Munguia for suspected sepsis; he is POD#0 from cysto and bladder laser lithotripsy. Will observe on the medicine service 1) Rule Out Sepsis -Afebrile without WBC and no tachycardia and normal BP -Monitor VS, CBC. Given ancef, LQ, and ceftriaxone and primary service consulted ID. Followup their recs. Can continue ceftriaxone. Followup UA. -Defer ultimate management to ID. -Followup cultres; doesn't appear septic. Can discuss if symptomatic when anesthesia wears off. 2) Hx Gout -No apparent flare; continue home zyloprim 3) Hx HLD -Verify and continue appropriate medications 4) Hx Prostate CA -Tx with seen implantation; no issues currently. Followup OP. Full Code
--- NOTE | 2018-07-22 22:13 | HP ---
CHIEF COMPLAINT: s/p cystoscopy possible sepsis HISTORY OF PRESENT ILLNESS: 58 year old male with a past medical history of Gout, HLD, Prostate Cancer ( treated with seed implantation), Diverticulitis seen in PACU at request of Dr. Munguia for evaluation of possible sepsis because patient was shivering. He is s/ p cystoscopy and laser lithotripsy for bladder stones with reportedly "infected stones" per nurse in PACU. Patient was not awake during my exam as he was sedated from anesthesia. PAST SURGICAL HISTORY: Intestinal Resection, Colostomy, Colostomy Reversal. Social History: Smoking: never Alcohol: never Drugs: never Family History: Mother: Lung Ca, Brother: Prostate Ca, Allergies codeine Allergy (Mild, Verified 03/28/16 15:37) "makes me itch" oxycodone HCl [From OxyContin] Allergy (Mild, Verified 03/28/16 15:37) "gets me dizzy" methadone Allergy (Verified 07/21/18 17:40) Itching HOME MEDICATIONS: Home Medications Medication Instructions Recorded Ibuprofen 600 mg PO Q6H PRN #30 tablet 04/16/16 Allopurinol [Zyloprim -] 100 mg PO DAILY 07/21/18 Ferrous Sulfate [Iron] 325 mg PO DAILY 07/21/18 REVIEW OF SYSTEMS CONSTITUTIONAL: Absent: fever, chills, diaphoresis, generalized weakness, malaise, loss of appetite, weight change HEENT: Absent: rhinorrhea, nasal congestion, throat pain, throat swelling, difficulty swallowing, mouth swelling, ear pain, eye pain, visual changes CARDIOVASCULAR: Absent: chest pain, syncope, palpitations, irregular heart rate, lightheadedness , peripheral edema RESPIRATORY: Absent: cough, shortness of breath, dyspnea with exertion, orthopnea, wheezing, stridor, hemoptysis GASTROINTESTINAL: Absent: abdominal pain, abdominal distension, nausea, vomiting, diarrhea, constipation, melena, hematochezia GENITOURINARY: Absent: dysuria, frequency, urgency, hesitancy, hematuria, flank pain, genital pain MUSCULOSKELETAL: Absent: myalgia, arthralgia, joint swelling, back pain, neck pain SKIN: Absent: rash, itching, pallor HEMATOLOGIC/IMMUNOLOGIC: Absent: easy bleeding, easy bruising, lymphadenopathy, frequent infections ENDOCRINE: Absent: unexplained weight gain, unexplained weight loss, heat intolerance, cold intolerance NEUROLOGIC: Absent: headache, focal weakness or paresthesias, dizziness, unsteady gait, seizure, mental status changes, bladder or bowel incontinence PSYCHIATRIC: Absent: anxiety, depression, suicidal or homicidal ideation, hallucinations. PHYSICAL EXAMINATION Vital Signs - 24 hr 07/22/18 07/22/18 07/22/18 13:45 18:24 18:40 Temperature 96.4 F L Pulse Rate 80 57 L Respiratory 16 18 Rate Blood Pressure 148/111 H 131/85 O2 Sat by Pulse 100 100 100 Oximetry (%) 07/22/18 07/22/18 07/22/18 18:55 19:10 19:25 Temperature 98 F Pulse Rate 52 L 67 54 L Respiratory 18 18 16 Rate Blood Pressure 133/87 129/98 119/78 O2 Sat by Pulse 100 100 100 Oximetry (%) 07/22/18 07/22/18 07/22/18 19:40 19:55 20:10 Temperature Pulse Rate 48 L 53 L 56 L Respiratory 18 18 16 Rate Blood Pressure 108/73 123/79 110/77 O2 Sat by Pulse 100 100 100 Oximetry (%) 07/22/18 07/22/18 07/22/18 20:25 20:40 20:55 Temperature Pulse Rate 51 L 60 53 L Respiratory 14 18 18 Rate Blood Pressure 112/80 114/75 110/77 O2 Sat by Pulse 100 100 100 Oximetry (%) 07/22/18 07/22/18 07/22/18 21:10 21:25 21:40 Temperature Pulse Rate 55 L 55 L 62 Respiratory 18 18 16 Rate Blood Pressure 104/71 104/71 121/70 O2 Sat by Pulse 100 100 100 Oximetry (%) 07/22/18 21:55 Temperature Pulse Rate 57 L Respiratory 18 Rate Blood Pressure 119/73 O2 Sat by Pulse 100 Oximetry (%) GENERAL: A&Ox3, no acute distress EYES: PERRLA, EOMI ENT: Moist mucus membranes NECK: No JVD LUNGS: CTA, no wheezes HEART: RRR, no murmurs ABDOMEN: Soft, nontender, BS present MUSCULOSKELETAL: No CVA Tenderness EXTREMITIES: 2+ pulses, no edema. NEUROLOGICAL: Cranial nerves II-XII intact. ASSESSMENT/PLAN: 58 year old male with a past medical history of Gout, HLD, Prostate Cancer ( treated with seed implantation), Diverticulitis seen in PACU at request of Dr. Munguia for evaluation of possible sepsis #Rigors: likely postprocedural, anesthesia, r/o sepsis -ekg -cxr, UA, blood cultures, urine cultures -on rocephin -ID consulted Dr. Rausch #Gout: chronic -allopurinol #FEN -got 2 U fluids -recommend continuing low flow rate LR -diet in AM #Prophylaxis SCDs #Disposition -admit obs Visit type - Emergency Visit Emergency Visit: Yes Care time: The patient presented to the Emergency Department on the above date and was hospitalized for further evaluation of their emergent condition. - New Patient This patient is new to me today: Yes Date on this admission: 07/22/18 - Critical Care Critical Care patient: No
[2018-07-22 22:22] LABS: ANION GAP 5 MMOL/L (8-16); BLOOD UREA NITROGEN 20 mg/dL (7-18); CALCIUM 8.3 mg/dL (8.5-10.1); CHLORIDE 108 mmol/L (98-107); CO2 27 mmol/L (21-32); CREATININE 1.1 mg/dL (0.55-1.3); GLUCOSE,RANDOM 138 mg/dL (74-106); SODIUM 140 mmol/L (136-145)
[2018-07-22] MEDS ORDERED: DEXTROSE 5%-WATER - 50 ML IVPB ONE (23:19)
[2018-07-22] MEDS ORDERED: cefTRIAXone SODIUM 1 GM VIAL ONE (23:19)
[2018-07-22] MEDS: CEFTRIAXONE 1 GM in DEXTROSE 5%-WATER - 50 ML IVPB SCH (23:20)
[2018-07-23] MEDS: HYDROmorphone HCl 2 MG/ML VIAL IVPB PRN ×2 (02:26→08:31)
[2018-07-23 07:40] LABS: BASO % 0.1 % (0-2.0); HEMOGLOBIN 10.5 GM/dL (11.7-16.9); LYMPH % 7.4 % (8-40); MCH 28.4 pg (25.7-33.7); MCHC 32.8 g/dl (32.0-35.9); MEAN CELL VOLUME 86.7 fl (80-96); MEAN PLT VOLUME 7.4 fl (7.5-11.1); MONO % 4.2 % (3.8-10.2); NEUT % 88.3 % (42.8-82.8); PLATELET COUNT 294 K/MM3 (134-434); RBC 3.69 M/mm3 (4.00-5.60); RDW 13.9 % (11.9-15.9); WHITE BLOOD COUNT 12.7 K/mm3 (4.0-10.0)
[2018-07-23 08:03] LABS: ANION GAP 8 MMOL/L (8-16); BLOOD UREA NITROGEN 22 mg/dL (7-18); CHLORIDE 108 mmol/L (98-107); CO2 27 mmol/L (21-32); CREATININE 1.4 mg/dL (0.55-1.3); GLUCOSE,RANDOM 142 mg/dL (74-106); POTASSIUM 4.1 mmol/L (3.5-5.1); SODIUM 142 mmol/L (136-145)
[2018-07-23] MEDS: DEXTROSE 5%-0.45% SALINE 1,000 ML IV SCH ×3 (08:20→23:09)
--- NOTE | 2018-07-23 08:54 | HP ---
DATE OF ADMISSION: 07/22/2018 Patient is a 57-year-old male who has history of chronic, recurrent urinary tract infections. Patient also has abrupt stoppage of urine stream at times. He states that he wakes up 4 times at night to urinate. He denies any hematuria. He does have some dysuria. The patient denies any alcohol or tobacco use. He does have history of prostate cancer, for which he underwent brachytherapy in 2018. He is allergic to CODEINE and METHADONE. Presently, he is on Flomax for his prostatism. An ultrasound of his abdomen revealed a large bladder stone. The patient is scheduled to undergo a cystoscopy and a cysto laser lithotripsy. PHYSICAL EXAMINATION: Chest: Clear. Heart: Regular rhythm. Abdomen: Soft. Back: There is no CVA tenderness. Genitalia: Atraumatic. Testes are normal in size and consistency. No hernias or hydroceles are elicited. Perineum has normal sensations. Saddle sensation is present. Rectal: Rectal tone is good. Bulbocavernosus reflex is brisk. Prostate is 2+, firm, and nontender. Extremities: Full range of motion with no cyanosis, clubbing, or edema. His urinalysis was positive for blood as well as nitrites. The patient is admitted for cystolithopaxy. Procedure explained in detail to patient. CARYN KING M.D. [id number]
[2018-07-23 09:06] LABS: EPI CELLS 6.9 /HPF (0-5/HPF); URINE APPEARANCE CLOUDY; URINE BACTERIA 7.5 /hpf (NEGATIVE); URINE BILIRUBIN NEGATIVE (NEGATIVE); URINE CASTS 15 /lpf (0-8); URINE GLUCOSE (UA) NEGATIVE (NEGATIVE); URINE KETONE NEGATIVE (NEGATIVE); URINE LEUK ESTERASE 2+ (NEGATIVE); URINE NITRITE NEGATIVE (NEGATIVE); URINE PROTEIN 3+ (NEGATIVE); URINE RBC 1414 /hpf (0-4); URINE UROBILINOGEN 0.2 mg/dL (0.2-1.0); URINE WBC 78 /hpf (0-5)
[2018-07-23 09:10] LABS: URINE COLOR YELLOW
--- NOTE | 2018-07-23 09:12 | OP ---
DATE OF OPERATION: 07/22/2018 PREOPERATIVE DIAGNOSIS: Multiple large bladder stones. POSTOPERATIVE DIAGNOSIS: Multiple large bladder stones. OPERATIVE PROCEDURE: Cystourethroscopy, optical internal urethrotomy, and cysto laser lithotripsy of stones approximately 1 hour and 50 minutes under general anesthesia. Patient is prepped and draped in the usual sterile manner. He is placed in the dorsal lithotomy position. Cystoscopy revealed a normal anterior urethra. A stricture was encountered at the level of the deep bulbous urethra. Therefore, an optical internal urethrotome was inserted. The stricture was cut at the 12 o'clock position. No extravasation or bleeding was noted. A continuation of the cystoscopy revealed mild benign prostatic hypertrophy. The bladder was entered. Urine was collected for culture and sensitivity. Inspection of the bladder revealed 4 bladder stones, 1 large stone measuring between 6 cm x 8 cm in diameter and 3 smaller stones measuring 1.5 cm in maximum diameter. Ureteral orifices were within normal limits, and efflux of urine was clear. Using a 1000 holmium fiber at an energy of 2 and a rate of 20, the stones were for approximately 110 minutes. A large amount of stones as well as gravel was evacuated with an [employer] evacuator. A stone basket was also inserted several times, and multiple large chips of stone were recovered. Inspection of the bladder revealed some areas of bleeding, but no stones were seen. Therefore, the bladder was emptied. The scope was removed. A 24-Slovenian Arellano was inserted. This was connected to a leg bag. The patient tolerated the procedure well. He returned to the recovery room in good condition. Joan [id number]
[2018-07-23] MEDS ORDERED: DEXTROSE 5%-WATER - 50 ML IVPB ONE ×4 (09:20→16:59)
[2018-07-23] MEDS ORDERED: cefTRIAXone SODIUM 1 GM VIAL ONE (09:20)
[2018-07-23] MEDS: CEFTRIAXONE 1 GM in DEXTROSE 5%-WATER - 50 ML IVPB SCH (09:22)
[2018-07-23] MEDS: FERROUS SO4 325 MG TABLET (FP) PO SCH (09:22)
--- NOTE | 2018-07-23 09:55 | PN ---
Progress Note (short form) - Note Progress Note: c/o diffuse abdominal pain. started since he was in the PACU. some improvement with pain medications, states he was having urinary frequency at home prior to planned procedure. denies Cp, SOB, fever, chiulls, n/V/C/D. single clot noted in baeza Current Medications Generic Name Dose Route Start Last Admin Trade Name Freq PRN Reason Stop Dose Admin Acetaminophen 650 mg 07/22/18 18:26 Tylenol - PO Q6H PRN PAIN Allopurinol 100 mg 07/23/18 10:00 07/23/18 09:22 Zyloprim - PO 100 mg DAILY MARGIE Administration Ferrous Sulfate 325 mg 07/23/18 10:00 07/23/18 09:22 Feosol - PO 325 mg DAILY MARGIE Administration Hydromorphone HCl 1 mg 07/22/18 20:25 07/23/18 08:31 Dilaudid Vial - IVPB 1 mg Q4H PRN Administration PAIN SCALE 6-10 Dextrose/Sodium Chloride 1,000 mls @ 150 mls/hr 07/22/18 20:30 07/23/18 08:20 D5-1/2ns - IV 150 mls/hr ASDIR MARGIE Administration Ceftriaxone Sodium 1 gm/ 50 mls @ 100 mls/hr 07/22/18 23:15 07/23/18 09:22 Dextrose IVPB 100 mls/hr BID MARGIE Administration Ondansetron HCl 4 mg 07/22/18 16:57 Zofran Injection IVPUSH Q6H PRN NAUSEA AND/OR VOMITING Last Vital Signs Temp Pulse Resp BP Pulse Ox 98.4 F 68 15 106/60 98 07/23/18 07:40 07/23/18 07:40 07/23/18 07:40 07/23/18 07:40 07/22/18 23:28 General mild distress due to pain, just received dilaudid CV S1 S2 RRR no murmur/rub/gallop Lungs CTA B/L no wheezing/rales/rhonchi Abdomen diffuse abdominal tenderness but worse in suprapubic region. no CVA tenderness Extremities no pedal edema CBCD WBC 12.7 K/mm3 (4.0-10.0) H 07/23/18 07:00 RBC 3.69 M/mm3 (4.00-5.60) L 07/23/18 07:00 Hgb 10.5 GM/dL (11.7-16.9) L 07/23/18 07:00 Hct 32.0 % (35.4-49) L 07/23/18 07:00 MCV 86.7 fl (80-96) 07/23/18 07:00 MCHC 32.8 g/dl (32.0-35.9) 07/23/18 07:00 RDW 13.9 % (11.9-15.9) 07/23/18 07:00 Plt Count 294 K/MM3 (134-434) 07/23/18 07:00 MPV 7.4 fl (7.5-11.1) L 07/23/18 07:00 CMP Sodium 142 mmol/L (136-145) 07/23/18 07:00 Potassium 4.1 mmol/L (3.5-5.1) 07/23/18 07:00 Chloride 108 mmol/L (98-107) H 07/23/18 07:00 Carbon Dioxide 27 mmol/L (21-32) 07/23/18 07:00 Anion Gap 8 MMOL/L (8-16) 07/23/18 07:00 BUN 22 mg/dL (7-18) H 07/23/18 07:00 Creatinine 1.4 mg/dL (0.55-1.3) H 07/23/18 07:00 Creat Clearance w eGFR 52.24 (>60) 07/23/18 07:00 Calcium 8.0 mg/dL (8.5-10.1) L 07/23/18 07:00 Assessment and PLan 58yo M [facility] gout, dyslipidemia and prostate ca came for scheduled cystoscopy and lithotripsy for multiple bladder stones, Was noted to be shivering post procedure and was admitted to monitor for signs of sepsis. 1. UTI- pt does not meet sepsis criteria but does have +UA. started on ceftriaxone yesterday. will obtain stat UCx although already received abx may result in being negative. ID consulted. f/u Bcx already sent. BCx were obtained prior to abx being administered 2. ROHAN- liekly due to infection vs recent procedure. has not been noted to be hypotensive since procedure. will avoid nephrotoxic agents. d/c allopurinol. consider renal u/s if continues to worsen. cont light IVF. 3. Bladder stones- s/p cystoscopy and lithotripsy with 3 bladder stones identified 07/22/18. question if stones were infected. unsure if stones were sent for analysis. further recommendations per urology. maintain baeza. pain control 4. gout- hold allopurinol pending renal recovery 5. prostate ca 6. DVT ppx- EAM, will f/u with urology if ok to start ppx treatment Visit type - Emergency Visit Emergency Visit: No - New Patient This patient is new to me today: Yes Date on this admission: 07/23/18 - Critical Care Critical Care patient: No - Discharge Referral Referred to [facility] No
[2018-07-23] MEDS ORDERED: ALLOPURINOL 100 MG TABLET (FP) PO SCH (10:00)
--- NOTE | 2018-07-23 11:21 | CON.ID ---
Consult Consult Specialty:: infextious diseases Referred by:: Dr.Neil Hauser Reason for Consultation:: sepsis,post op - History of Present Illness Chief Complaint: fever,chills History of Present Illness: 58 year old male with a past medical history of Gout, HLD, Prostate Cancer Diverticulitis seen in PACU was admitted to the hospital because of sepsis . patient underwent cystoscopy and had bladder stomes it seems 3 of them removed also had lithotripsy patient then was shivering and became dizzy, currently the patient feels dizzy patient was started on iv ceftriaxone - History Source History Provided By: Patient, Medical Record Limitations to Obtaining History: Clinical Condition - Past Medical History Cardio/Vascular: Yes: Hyperlipdemia Gastrointestinal: Yes: Diverticulitis ( with colostomy reversal) Renal/: Yes: Cancer (Prostate) Rheumatology: Yes: Gout - Past Surgical History Past Surgical History: Yes: Colostomy ( reversal) - Alcohol/Substance Use Hx Alcohol Use: Yes (social) History of Substance Use: reports: None - Smoking History Smoking history: Never smoked Have you smoked in the past 12 months: No - Social History ADL: Independent History of Recent Travel: No Home Medications - Allergies Allergies/Adverse Reactions: Allergies Allergy/AdvReac Type Severity Reaction Status Date / Time codeine Allergy Mild "makes me Verified 03/28/16 15:37 itch" oxycodone HCl Allergy Mild "gets me Verified 03/28/16 15:37 [From OxyContin] dizzy" methadone Allergy Itching Verified 07/21/18 17:40 - Home Medications Home Medications: Ambulatory Orders Ibuprofen 600 mg PO Q6H PRN #30 tablet 04/16/16 Allopurinol [Zyloprim -] 100 mg PO DAILY 07/21/18 Ferrous Sulfate [Iron] 325 mg PO DAILY 07/21/18 Family Disease History - Family Disease History Family Disease History: Heart Disease: Father, CA: Mother (breast , HTN ), Brother (Prostate) Review of Systems - Review of Systems Constitutional: reports: Chills Eyes: reports: No Symptoms HENT: reports: No Symptoms Neck: reports: No Symptoms Cardiovascular: reports: No Symptoms Respiratory: reports: No Symptoms Gastrointestinal: reports: No Symptoms Genitourinary: reports: No Symptoms Musculoskeletal: reports: No Symptoms Integumentary: reports: No Symptoms Neurological: reports: Dizziness Endocrine: reports: No Symptoms Hematology/Lymphatic: reports: No Symptoms Psychiatric: reports: No Symptoms Physical Exam Vital Signs: Vital Signs Temperature 98.4 F 07/23/18 07:40 Pulse Rate 68 07/23/18 07:40 Respiratory Rate 15 07/23/18 07:40 Blood Pressure 106/60 07/23/18 07:40 O2 Sat by Pulse Oximetry (%) 98 07/23/18 09:00 Constitutional: Yes: Well Nourished, Mild Distress, Obese Eyes: Yes: Conjunctiva Clear Neck: Yes: Supple, Trachea Midline Cardiovascular: Yes: Regular Rate and Rhythm Respiratory: Yes: Regular, CTA Bilaterally Gastrointestinal: Yes: Normal Bowel Sounds, Soft Musculoskeletal: Yes: WNL Extremities: Yes: WNL Neurological: Yes: Alert, Other (dizziness) Psychiatric: Yes: Other Labs: CBC, BMP 07/23/18 07:00 07/23/18 07:00 Imaging - Results Chest X-ray: Report Reviewed, Image Reviewed Assessment/Plan 58yo M wtih PMH gout, dyslipidemia and prostate ca post cystoscopy had sepsis symptoms patient inspite being on ceftriaxone wbc is increasing and also spiked a fever will change abx to zosyn await for cx report rest as per the team
[2018-07-23] MEDS ORDERED: PIPERACILLIN/TAZOBACTAM 3.375 GM VIAL IVPB ONE ×3 (12:22→16:59)
[2018-07-23] MEDS: PIPERACILLIN/TAZOB 3.375 GM 3.375 GM in DEXTROSE 5%-WATER - 50 ML IVPB SCH ×2 (12:30→17:20)
--- NOTE | 2018-07-23 16:32 | EKG ---
Test Reason : Blood Pressure : / mmHG Vent. Rate : 051 BPM Atrial Rate : 051 BPM P-R Int : 158 ms QRS Dur : 104 ms QT Int : 414 ms P-R-T Axes : 060 047 046 degrees QTc Int : 381 ms SINUS BRADYCARDIA OTHERWISE NORMAL ECG WHEN COMPARED WITH ECG OF 28-MAR-2016 22:11, VENT. RATE HAS DECREASED BY 25 BPM Confirmed by GANESH HANSEN, DEBORAH ([id number]) on 07/23/2018 4:31:42 PM Referred By: Graciela GARIBAY Confirmed By:DEBORAH ANDERSEN MD
[2018-07-24] MEDS ORDERED: DEXTROSE 5%-WATER - 50 ML IVPB ONE ×3 (03:54→16:58)
[2018-07-24] MEDS ORDERED: PIPERACILLIN/TAZOBACTAM 3.375 GM VIAL IVPB ONE ×3 (03:54→16:58)
[2018-07-24] MEDS: PIPERACILLIN/TAZOB 3.375 GM 3.375 GM in DEXTROSE 5%-WATER - 50 ML IVPB SCH ×3 (04:02→17:03)
[2018-07-24] MEDS: DEXTROSE 5%-0.45% SALINE 1,000 ML IV SCH ×2 (07:36→14:45)
[2018-07-24 07:57] LABS: BASO % 0.4 % (0-2.0); EOS % 0.9 % (0-4.5); HEMATOCRIT 32.3 % (35.4-49); HEMOGLOBIN 10.5 GM/dL (11.7-16.9); LYMPH % 20.3 % (8-40); MCH 28.4 pg (25.7-33.7); MCHC 32.6 g/dl (32.0-35.9); MEAN CELL VOLUME 86.9 fl (80-96); MEAN PLT VOLUME 7.5 fl (7.5-11.1); MONO % 6.9 % (3.8-10.2); NEUT % 71.5 % (42.8-82.8); PLATELET COUNT 286 K/MM3 (134-434); RBC 3.72 M/mm3 (4.00-5.60); RDW 13.7 % (11.9-15.9); WHITE BLOOD COUNT 8.7 K/mm3 (4.0-10.0)
[2018-07-24 08:21] LABS: ANION GAP 7 MMOL/L (8-16); BLOOD UREA NITROGEN 17 mg/dL (7-18); CALCIUM 8.4 mg/dL (8.5-10.1); CHLORIDE 113 mmol/L (98-107); CO2 26 mmol/L (21-32); CREATININE 1.4 mg/dL (0.55-1.3); GLUCOSE,RANDOM 108 mg/dL (74-106); POTASSIUM 3.9 mmol/L (3.5-5.1); SODIUM 146 mmol/L (136-145)
[2018-07-24] MEDS: FERROUS SO4 325 MG TABLET (FP) PO SCH (09:31)
--- NOTE | 2018-07-24 10:55 | PN ---
Progress Note, Physician History of Present Illness: better today dizziness much better spiked fever otherwise comfortable - Current Medication List Current Medications: Active Medications Acetaminophen (Tylenol -) 650 mg PO Q6H PRN PRN Reason: PAIN Last Admin: 07/23/18 20:49 Dose: 650 mg Ferrous Sulfate (Feosol -) 325 mg PO DAILY MARGIE Last Admin: 07/24/18 09:31 Dose: 325 mg Hydromorphone HCl (Dilaudid Vial -) 1 mg IVPB Q4H PRN PRN Reason: PAIN SCALE 6-10 Last Admin: 07/23/18 08:31 Dose: 1 mg Dextrose/Sodium Chloride (D5-1/2ns -) 1,000 mls @ 150 mls/hr IV ASDIR MARGIE Last Admin: 07/24/18 07:36 Dose: 150 mls/hr Piperacillin Sod/Tazobactam (Sod 3.375 gm/ Dextrose) 50 mls @ 100 mls/hr IVPB Q8H-IV MARGIE; Protocol Last Admin: 07/24/18 09:31 Dose: 100 mls/hr Ondansetron HCl (Zofran Injection) 4 mg IVPUSH Q6H PRN PRN Reason: NAUSEA AND/OR VOMITING - Objective Vital Signs: Vital Signs Temperature 98.3 F 07/24/18 07:41 Pulse Rate 55 L 07/24/18 07:41 Respiratory Rate 14 07/24/18 07:41 Blood Pressure 128/76 07/24/18 07:41 O2 Sat by Pulse Oximetry (%) 97 07/23/18 21:00 Constitutional: Yes: No Distress, Calm, Obese Cardiovascular: Yes: Regular Rate and Rhythm Respiratory: Yes: Regular, CTA Bilaterally Gastrointestinal: Yes: Normal Bowel Sounds, Soft Musculoskeletal: Yes: WNL Extremities: Yes: WNL Neurological: Yes: Alert, Oriented Psychiatric: Yes: Alert, Oriented Labs: CBC, BMP 07/24/18 07:00 07/24/18 07:00 Assessment/Plan 58yo M wtih PMH gout, dyslipidemia and prostate ca post cystoscopy had sepsis symptoms continue current mgmt fever sepsis leukocytosisi chills dizziness plan continue abx for now will see how patient does tomorrow rest as per the team
--- NOTE | 2018-07-24 11:30 | PN ---
Physical Exam: SUBJECTIVE: Patient seen and examined, febrile overnight to 100.4 OBJECTIVE: Vital Signs Period Temp Pulse Resp BP Sys/Mcgrath Pulse Ox Last 24 Hr 98.3 F-100.4 F 54-62 14-17 109-128/65-76 97-97 GENERAL: A&Ox3, no acute distress EYES: PERRLA, EOMI ENT: Moist mucus membranes NECK: No JVD LUNGS: CTA, no wheezes HEART: RRR, no murmurs ABDOMEN: Soft, nontender, BS present MUSCULOSKELETAL: No CVA Tenderness EXTREMITIES: 2+ pulses, no edema. NEUROLOGICAL: Cranial nerves II-XII intact. Laboratory Results - last 24 hr 07/23/18 07/24/18 07/24/18 08:00 07:00 07:00 WBC 8.7 RBC 3.72 L Hgb 10.5 L Hct 32.3 L MCV 86.9 MCH 28.4 MCHC 32.6 RDW 13.7 Plt Count 286 MPV 7.5 Absolute Neuts (auto) 6.2 Neutrophils % 71.5 Lymphocytes % 20.3 D Monocytes % 6.9 Eosinophils % 0.9 D Basophils % 0.4 D Nucleated RBC % 0 Sodium 146 H Potassium 3.9 Chloride 113 H Carbon Dioxide 26 Anion Gap 7 L BUN 17 Creatinine 1.4 H Creat Clearance w eGFR 52.24 Random Glucose 108 H Calcium 8.4 L U Pathogenic Cast Auto None U Sm Round Cell (Auto) None Active Medications Generic Name Dose Route Start Last Admin Trade Name Freq PRN Reason Stop Dose Admin Acetaminophen 650 mg 07/22/18 18:26 07/23/18 20:49 Tylenol - PO 650 mg Q6H PRN Administration PAIN Ferrous Sulfate 325 mg 07/23/18 10:00 07/24/18 09:31 Feosol - PO 325 mg DAILY MARGIE Administration Hydromorphone HCl 1 mg 07/22/18 20:25 07/23/18 08:31 Dilaudid Vial - IVPB 1 mg Q4H PRN Administration PAIN SCALE 6-10 Dextrose/Sodium Chloride 1,000 mls @ 150 mls/hr 07/22/18 20:30 07/24/18 07:36 D5-1/2ns - IV 150 mls/hr ASDIR MARGIE Administration Piperacillin Sod/Tazobactam 50 mls @ 100 mls/hr 07/23/18 11:45 07/24/18 09:31 Sod 3.375 gm/ Dextrose IVPB 100 mls/hr Q8H-IV MARGIE Administration Protocol Ondansetron HCl 4 mg 07/22/18 16:57 Zofran Injection IVPUSH Q6H PRN NAUSEA AND/OR VOMITING ASSESSMENT/PLAN: 58 year old male with a past medical history of Gout, HLD, Prostate Cancer ( treated with seed implantation), Diverticulitis seen in PACU at request of Dr. Munguia for evaluation of possible sepsis 2/2 UTI #Rigors: Improved, not septic but febrile overnight -ID consulted Dr. Rausch -continue zosyn per ID -f/u urine cultures #ROHAN: creatinine 1.4 today -continue fluids #Gout: chronic -allopurinol #FEN -continue fluids with D5 1/2NS @ 150 -diet -replete electrolytes as necessary #Prophylaxis SCDs #Disposition -admit obs Visit type - Emergency Visit Emergency Visit: Yes ED Registration Date: 07/22/18 Care time: The patient presented to the Emergency Department on the above date and was hospitalized for further evaluation of their emergent condition. - New Patient This patient is new to me today: No - Critical Care Critical Care patient: No
--- NOTE | 2018-07-24 14:02 | PN ---
Teaching Attending Note Name of Resident: Kelton Blackwell ATTENDING PHYSICIAN STATEMENT I saw and evaluated the patient. I reviewed the resident's note and discussed the case with the resident. I agree with the resident's findings and plan as documented. SUBJECTIVE: OBJECTIVE: aaox3 s1 and s2 rrr lungs CTA good air entry no edema lying comfortably in bed PERRLA ASSESSMENT AND PLAN: 58 year old male with a past medical history of Gout, HLD, Prostate Cancer ( treated with Brachytherapy implantation), Diverticulitis seen in PACU at request of Dr. Munguia for evaluation of possible sepsis 2/2 UTI #Rigors: Improved, not septic but febrile overnight -ID consulted Dr. Rausch -continue pipercillin/tazobactam per ID - will d./c if the cultures are negative -f/u urine cultures #ROHAN: creatinine 1.4 today -continue fluids #Gout: chronic -allopurinol
[2018-07-25] MEDS: DEXTROSE 5%-0.45% SALINE 1,000 ML IV SCH ×2 (00:48→18:08)
[2018-07-25] MEDS ORDERED: PIPERACILLIN/TAZOBACTAM 3.375 GM VIAL IVPB ONE ×3 (00:49→18:03)
[2018-07-25] MEDS ORDERED: DEXTROSE 5%-WATER - 50 ML IVPB ONE ×3 (00:49→18:03)
[2018-07-25] MEDS: PIPERACILLIN/TAZOB 3.375 GM 3.375 GM in DEXTROSE 5%-WATER - 50 ML IVPB SCH ×3 (01:19→18:05)
[2018-07-25] MEDS ORDERED: SODIUM CHLORIDE 1,000 ML IV STA ×2 (10:16→13:11)
[2018-07-25] MEDS: FERROUS SO4 325 MG TABLET (FP) PO SCH (10:38)
--- NOTE | 2018-07-25 13:26 | PN ---
Progress Note, Physician - Current Medication List Current Medications: Active Medications Acetaminophen (Tylenol -) 650 mg PO Q6H PRN PRN Reason: PAIN Last Admin: 07/23/18 20:49 Dose: 650 mg Ferrous Sulfate (Feosol -) 325 mg PO DAILY MARGIE Last Admin: 07/25/18 10:38 Dose: 325 mg Hydromorphone HCl (Dilaudid Vial -) 1 mg IVPB Q4H PRN PRN Reason: PAIN SCALE 6-10 Last Admin: 07/23/18 08:31 Dose: 1 mg Dextrose/Sodium Chloride (D5-1/2ns -) 1,000 mls @ 150 mls/hr IV ASDIR MARGIE Last Admin: 07/25/18 00:48 Dose: 150 mls/hr Piperacillin Sod/Tazobactam (Sod 3.375 gm/ Dextrose) 50 mls @ 100 mls/hr IVPB Q8H-IV MARGIE; Protocol Last Admin: 07/25/18 10:38 Dose: 100 mls/hr Sodium Chloride (Normal Saline -) 1,000 mls @ 1,000 mls/hr IV ASDIR STA Stop: 07/25/18 14:10 Ondansetron HCl (Zofran Injection) 4 mg IVPUSH Q6H PRN PRN Reason: NAUSEA AND/OR VOMITING - Objective Vital Signs: Vital Signs Temperature 98.6 F 07/25/18 12:06 Pulse Rate 50 L 07/25/18 12:06 Respiratory Rate 18 07/25/18 12:06 Blood Pressure 106/65 07/25/18 12:06 O2 Sat by Pulse Oximetry (%) 95 07/25/18 09:00 Labs: CBC, BMP 07/24/18 07:00 07/24/18 07:00
--- NOTE | 2018-07-25 14:27 | PN ---
Physical Exam: SUBJECTIVE: Patient seen and examined at bedside- patient still complains of some nasuea/dizziness with some suprapubic pain; denies any urinary symptoms OBJECTIVE: Vital Signs Period Temp Pulse Resp BP Sys/Mcgrath Pulse Ox Last 24 Hr 98.3 F-99 F 50-74 18-20 105-117/54-78 95-98 GENERAL: The patient is awake, alert, and fully oriented, in no acute distress. EYES: PEERLA: EOMI no scleral icterus NECK: no JVD; no lymphadenopathy. LUNGS: Breath sounds equal, clear to auscultation bilaterally, no wheezes, no crackles, no accessory muscle use. HEART: Regular rate and rhythm, S1, S2 without murmur, rub or gallop. ABDOMEN: Soft, slight suprapubic tenderness upon palpation; + BS in all 4 quadrants. EXTREMITIES: 2+ pulses, warm, well-perfused, no edema. NEUROLOGICAL: Cranial nerves II through XII grossly intact. Normal speech, gait not observed. PSYCH: Normal mood, normal affect. SKIN: Warm, dry, normal turgor, no rashes or lesions noted Laboratory Results - last 24 hr 07/25/18 12:45 POC Glucometer 91 Active Medications Generic Name Dose Route Start Last Admin Trade Name Freq PRN Reason Stop Dose Admin Acetaminophen 650 mg 07/22/18 18:26 07/23/18 20:49 Tylenol - PO 650 mg Q6H PRN Administration PAIN Ferrous Sulfate 325 mg 07/23/18 10:00 07/25/18 10:38 Feosol - PO 325 mg DAILY MARGIE Administration Hydromorphone HCl 1 mg 07/22/18 20:25 07/23/18 08:31 Dilaudid Vial - IVPB 1 mg Q4H PRN Administration PAIN SCALE 6-10 Dextrose/Sodium Chloride 1,000 mls @ 150 mls/hr 07/22/18 20:30 07/25/18 00:48 D5-1/2ns - IV 150 mls/hr ASDIR MARGIE Administration Piperacillin Sod/Tazobactam 50 mls @ 100 mls/hr 07/23/18 11:45 07/25/18 10:38 Sod 3.375 gm/ Dextrose IVPB 100 mls/hr Q8H-IV MARGIE Administration Protocol Ondansetron HCl 4 mg 07/22/18 16:57 Zofran Injection IVPUSH Q6H PRN NAUSEA AND/OR VOMITING ASSESSMENT/PLAN: 58 year old male with a past medical history of Gout, HLD, Prostate Cancer ( treated with seed implantation), Diverticulitis seen in PACU at request of Dr. Munguia for evaluation of possible sepsis 2/2 UTI #Rigors: patient continues to have rigors today -ID consulted Dr. Rausch -continue zosyn day 3 -f/u urine cultures #ROHAN: creatinine 1.4 yesterday -renal U/S showing Left nephrolithiasis and B/L hydro -spoke with Dr. Munguia; patient going to OR tomorrow AM -NPO after midnight #Gout: chronic -allopurinol #FEN -continue fluids with D5 1/2NS @ 150 -diet -replete electrolytes as necessary #Prophylaxis SCDs #Disposition -admit obs NPO after midnight Problem List - Problems (1) Hydroa aestivale Code(s): L56.4 - POLYMORPHOUS LIGHT ERUPTION (2) Hydronephrosis Code(s): N13.30 - UNSPECIFIED HYDRONEPHROSIS (3) ROHAN (acute kidney injury) Code(s): N17.9 - ACUTE KIDNEY FAILURE, UNSPECIFIED Visit type - Emergency Visit Emergency Visit: Yes ED Registration Date: 07/22/18 Care time: The patient presented to the Emergency Department on the above date and was hospitalized for further evaluation of their emergent condition. - New Patient This patient is new to me today: Yes Date on this admission: 07/25/18 - Critical Care Critical Care patient: No
[2018-07-25] MEDS ORDERED: ONDANSETRON 4 MG/2 ML VIAL IVPUSH PRN (15:36)
--- NOTE | 2018-07-25 17:46 | PN ---
Teaching Attending Note Name of Resident: Anitha Woods ATTENDING PHYSICIAN STATEMENT I saw and evaluated the patient. I reviewed the resident's note and discussed the case with the resident. I agree with the resident's findings and plan as documented. SUBJECTIVE: No further abdominal discomfort. No fever/chills. No nausea/vomiting OBJECTIVE: Afebrile, Hemodynamically Stable. Last Vital Signs Temp Pulse Resp BP Pulse Ox 98.1 F 55 L 18 104/57 L 95 07/25/18 14:38 07/25/18 14:38 07/25/18 12:06 07/25/18 14:38 07/25/18 09:00 HEENT - Atraumatic, Normocephalic. Heart - S1, S2, RRR Lungs - clear to auscultation Abdomen - Soft, non-tenderr. No flank tenderness. Bowel Sounds normal. - Arellano in situ Extremities - no calf tenderness Laboratory Results - last 24 hr 07/25/18 12:45 POC Glucometer 91 Current Medications Generic Name Dose Route Start Last Admin Trade Name Freq PRN Reason Stop Dose Admin Acetaminophen 650 mg 07/22/18 18:26 07/23/18 20:49 Tylenol - PO 650 mg Q6H PRN Administration PAIN Ferrous Sulfate 325 mg 07/23/18 10:00 07/25/18 10:38 Feosol - PO 325 mg DAILY MARGIE Administration Hydromorphone HCl 1 mg 07/22/18 20:25 07/23/18 08:31 Dilaudid Vial - IVPB 1 mg Q4H PRN Administration PAIN SCALE 6-10 Dextrose/Sodium Chloride 1,000 mls @ 150 mls/hr 07/22/18 20:30 07/25/18 00:48 D5-1/2ns - IV 150 mls/hr ASDIR MARGIE Administration Piperacillin Sod/Tazobactam 50 mls @ 100 mls/hr 07/23/18 11:45 07/25/18 10:38 Sod 3.375 gm/ Dextrose IVPB 100 mls/hr Q8H-IV MARGIE Administration Protocol Ondansetron HCl 4 mg 07/25/18 15:36 Zofran Injection IVPUSH Q6H PRN NAUSEA AND/OR VOMITING ASSESSMENT AND PLAN: 58 year old male with a history of Gout, HLD, Prostate Cancer (s/p RTx implants) , seen in PACU for evaluation for sepsis s/p Cystoscopy with Laser Lithotripsy. 1. Nephrolithiasis s/p Cystoscopy with Laser Lithotripsy. Empirically treated with IV Zosyn (Day 3) for possible UTI - Urine Cx negative Afebrile, Hemodynamically Stable. Last fever 07/23/18 Tmax 100.4 Contiue Abx as per ID. 2. Obstructive Uropathy Creat climbing with bilateral hydronephrosis on Renal US Further management as per Urology. 3. Gout- chronic, no evidence of flare. Continue Allopurinol. DVT Px - Heparin SQ
[2018-07-25] MEDS: HEPARIN NA (PORCINE) 5,000 UNITS/ML 1ML VIAL SQ SCH (21:39)
[2018-07-26] MEDS: DEXTROSE 5%-0.45% SALINE 1,000 ML IV SCH ×2 (01:34→08:58)
[2018-07-26] MEDS: PIPERACILLIN/TAZOB 3.375 GM 3.375 GM in DEXTROSE 5%-WATER - 50 ML IVPB SCH ×2 (01:34→09:04)
[2018-07-26] MEDS ORDERED: DEXTROSE 5%-WATER - 50 ML IVPB ONE ×2 (01:37→09:03)
[2018-07-26] MEDS ORDERED: PIPERACILLIN/TAZOBACTAM 3.375 GM VIAL IVPB ONE ×2 (01:37→09:02)
[2018-07-26] MEDS: HEPARIN NA (PORCINE) 5,000 UNITS/ML 1ML VIAL SQ SCH (06:28)
[2018-07-26 07:21] LABS: HEMATOCRIT 32.1 % (35.4-49); HEMOGLOBIN 10.5 GM/dL (11.7-16.9); MCH 28.1 pg (25.7-33.7); MCHC 32.7 g/dl (32.0-35.9); MEAN CELL VOLUME 85.9 fl (80-96); MEAN PLT VOLUME 7.3 fl (7.5-11.1); PLATELET COUNT 309 K/MM3 (134-434); RBC 3.73 M/mm3 (4.00-5.60); RDW 13.7 % (11.9-15.9); WHITE BLOOD COUNT 7.3 K/mm3 (4.0-10.0)
[2018-07-26 08:13] LABS: ANION GAP 7 MMOL/L (8-16); BLOOD UREA NITROGEN 7 mg/dL (7-18); CALCIUM 7.9 mg/dL (8.5-10.1); CHLORIDE 106 mmol/L (98-107); CO2 28 mmol/L (21-32); CREATININE 0.9 mg/dL (0.55-1.3); GLUCOSE,RANDOM 103 mg/dL (74-106); MAGNESIUM 1.9 mg/dL (1.8-2.4); PHOSPHOROUS 3.8 mg/dL (2.5-4.9); POTASSIUM 3.7 mmol/L (3.5-5.1); SODIUM 141 mmol/L (136-145)
[2018-07-26] MEDS: FERROUS SO4 325 MG TABLET (FP) PO SCH (09:04)
[2018-07-26 11:01] VITALS: BP 115/65; PULSE 55; TEMP 98.3
--- NOTE | 2018-07-26 12:19 | PN ---
Progress Note, Physician History of Present Illness: patient stable doing well afebrile urology note noted - Current Medication List Current Medications: Active Medications Acetaminophen (Tylenol -) 650 mg PO Q6H PRN PRN Reason: PAIN Last Admin: 07/23/18 20:49 Dose: 650 mg Allopurinol (Zyloprim -) 100 mg PO DAILY MARGIE Ferrous Sulfate (Feosol -) 325 mg PO DAILY [facility] Last Admin: 07/26/18 09:04 Dose: Not Given Heparin Sodium (Porcine) (Heparin -) 5,000 unit SQ TID MARGIE Last Admin: 07/26/18 06:28 Dose: Not Given Hydromorphone HCl (Dilaudid Vial -) 1 mg IVPB Q4H PRN PRN Reason: PAIN SCALE 6-10 Last Admin: 07/23/18 08:31 Dose: 1 mg Dextrose/Sodium Chloride (D5-1/2ns -) 1,000 mls @ 150 mls/hr IV ASDIR MARGIE Last Admin: 07/26/18 08:58 Dose: 150 mls/hr Piperacillin Sod/Tazobactam (Sod 3.375 gm/ Dextrose) 50 mls @ 100 mls/hr IVPB Q8H-IV MARGIE; Protocol Last Admin: 07/26/18 09:04 Dose: 100 mls/hr Ondansetron HCl (Zofran Injection) 4 mg IVPUSH Q6H PRN PRN Reason: NAUSEA AND/OR VOMITING - Objective Vital Signs: Vital Signs Temperature 98.3 F 07/26/18 09:00 Pulse Rate 55 L 07/26/18 09:00 Respiratory Rate 18 07/26/18 09:00 Blood Pressure 115/65 07/26/18 09:00 O2 Sat by Pulse Oximetry (%) 98 07/26/18 09:00 Constitutional: Yes: No Distress, Calm Cardiovascular: Yes: Regular Rate and Rhythm Respiratory: Yes: Regular, CTA Bilaterally Gastrointestinal: Yes: Normal Bowel Sounds, Soft Musculoskeletal: Yes: WNL Extremities: Yes: WNL Neurological: Yes: Alert, Oriented Psychiatric: Yes: Alert, Oriented Labs: CBC, BMP 07/26/18 06:30 07/26/18 06:30 Assessment/Plan 58yo M wtih PMH gout, dyslipidemia and prostate ca post cystoscopy had sepsis symptoms continue current mgmt fever sepsis leukocytosisi chills dizziness plan can change to po abx augmentin for 3 more days rest as per the team
--- NOTE | 2018-07-26 13:58 | DS ---
Physical Exam: SUBJECTIVE: Patient seen and examined at bedside- no acute events overnight patient states he is no longr having any fevers or chills no nasuea / vomiting- he denies any CP/SON OBJECTIVE: Vital Signs Period Temp Pulse Resp BP Sys/Mcgrath Pulse Ox Last 24 Hr 98.1 F-98.9 F 52-55 18-21 104-144/57-88 96-98 PHYSICAL EXAM GENERAL: The patient is awake, alert, and fully oriented, in no acute distress. EYES:PEERLA: EOMI no scleral icterus NECK: no JVD: no lympahdenopathy LUNGS:CTA B/L; no rales, rhonchi or wheezing HEART: Regular rate and rhythm, S1, S2 without murmur, rub or gallop. ABDOMEN: Soft, nontender, nondistended, normoactive bowel sounds, no guarding, no rebound, no hepatosplenomegaly, no masses. EXTREMITIES: 2+ pulses, warm, well-perfused, no edema. PSYCH: Normal mood, normal affect. SKIN: Warm, dry, normal turgor, no rashes or lesions noted. LABS Laboratory Results - last 24 hr 07/26/18 07/26/18 06:30 06:30 WBC 7.3 RBC 3.73 L Hgb 10.5 L Hct 32.1 L MCV 85.9 MCH 28.1 MCHC 32.7 RDW 13.7 Plt Count 309 MPV 7.3 L Sodium 141 Potassium 3.7 Chloride 106 Carbon Dioxide 28 Anion Gap 7 L BUN 7 Creatinine 0.9 Creat Clearance w eGFR 86.98 Random Glucose 103 Calcium 7.9 L Phosphorus 3.8 Magnesium 1.9 renal US 1. Mild bilateral hydronephrosis, right greater than left. 2. Left nephrolithiasis. Clinical correlation and CT follow-up recommended. Please see above discussion. HOSPITAL COURSE: Date of Admission:07/22/18 58 year old male with a past medical history of Gout, HLD, Prostate Cancer ( treated with seed implantation), Diverticulitis seen in PACU at request of Dr. Akins for evaluation of possible sepsis because patient was shivering. He is s/ p cystoscopy and laser lithotripsy for bladder stones with reportedly "infected stones" per nurse in PACU. He was febrile after procdure; he was seen by ID and started on Zosyn. He remained afebrile for the rest of his stay however, his Cr remained elevated so he underwent a renal U/S with results noted above. Spoke with urologist, dr akins who did not feel surgery was necessary and that he can be discharged with follow up within one week. he was discharged home with 3 more days of antibitoic (augmentin) and to see the urologist within one week Date of Discharge: 07/26/18 Minutes to complete discharge: 35 Discharge Summary Reason For Visit: BLADDER STONE Condition: Good - Instructions Diet, Activity, Other Instructions: You were admitted to the hospital after undergoing a urological procedure and were thought to have an infection. You were seen by an infectious disease doctor and started on antibiotics. Your symptoms improved and you were stable to be discharged home. Please resume all of your home medications in addition: Please take the antibiotic Augmentin 875mg twice a day for three days starting tomorrow Please follow up with your primary care physician within one week Please follow up with Dr. Akins within one week *if you begin to experience problems/pain with urinating, chest pains, shortness of breath, nausea/vomiting please return to the emergency room immediately Referrals: Dorita Akins MD [Staff Physician] - 1 Week Disposition: HOME - Home Medications Comprehensive Discharge Medication List: Ambulatory Orders Ibuprofen 600 mg PO Q6H PRN #30 tablet 04/16/16 Allopurinol [Zyloprim -] 100 mg PO DAILY 07/21/18 Ferrous Sulfate [Iron] 325 mg PO DAILY 07/21/18 Amox-Tr/K Cl [Augmentin - 875Mg Tablet] 1 tab PO BID #6 tablet 07/26/18 Problem List - Problems (1) Hydroa aestivale Code(s): L56.4 - POLYMORPHOUS LIGHT ERUPTION (2) Hydronephrosis Code(s): N13.30 - UNSPECIFIED HYDRONEPHROSIS (3) ROHAN (acute kidney injury) Code(s): N17.9 - ACUTE KIDNEY FAILURE, UNSPECIFIED This patient is new to me today: No Emergency Visit: Yes ED Registration Date: 07/22/18 Care time: The patient presented to the Emergency Department on the above date and was hospitalized for further evaluation of their emergent condition. Critical Care patient: No - Discharge Referral Referred to [facility] Med P.C.: No
--- NOTE | 2018-07-26 15:45 | PATH ---
Surgical Pathology Report Patient Name: ADRIANNA DELGADO [facility]. Rec. #: [id number] /Age/Gender: 1960 (Age: 58) / M Account: [id number] Location: [address] [place] [address]/[facility] Taken: 07/22/2018 Received: 07/25/2018 Reported: 07/26/2018 Physicians: Dorita Munguia M.D. Specimen(s) Received BLADDER CALCULI Clinical History Bladder stone Final Diagnosis BLADDER STONES, CYSTOSCOPY, LASER LITHOTRIPSY: BLADDER CALCULI. MACROSCOPIC DIAGNOSIS. Electronically Signed Lana Andrew M.D. Gross Description Received fresh labeled "bladder stones," is a 3.5 x 3.0 x 0.6 cm aggregate of ham, irregular to fragmented calculi. The specimen is sent for chemical analysis. /07/25/2018 saudi/07/25/2018
--- NOTE | 2018-07-26 16:02 | PN ---
Teaching Attending Note Name of Resident: Anitha Woods ATTENDING PHYSICIAN STATEMENT I saw and evaluated the patient. I reviewed the resident's note and discussed the case with the resident. I agree with the resident's findings and plan as documented. SUBJECTIVE: No further abdominal discomfort. No fever/chills. No nausea/ vomiting. TOV successful. OBJECTIVE: Afebrile, Hemodynamically Stable. Last Vital Signs Temp Pulse Resp BP Pulse Ox 98.3 F 55 L 18 115/65 98 07/26/18 09:00 07/26/18 09:00 07/26/18 09:00 07/26/18 09:00 07/26/18 09:00 Heart - S1, S2, RRR Lungs - clear to auscultation Abdomen - Soft, non-tender. No flank tenderness. Bowel Sounds normal. Extremities - no calf tenderness Laboratory Results - last 24 hr 07/26/18 07/26/18 06:30 06:30 WBC 7.3 RBC 3.73 L Hgb 10.5 L Hct 32.1 L MCV 85.9 MCH 28.1 MCHC 32.7 RDW 13.7 Plt Count 309 MPV 7.3 L Sodium 141 Potassium 3.7 Chloride 106 Carbon Dioxide 28 Anion Gap 7 L BUN 7 Creatinine 0.9 Creat Clearance w eGFR 86.98 Random Glucose 103 Calcium 7.9 L Phosphorus 3.8 Magnesium 1.9 Discharge Medications Medication Instructions Recorded Ibuprofen 600 mg PO Q6H PRN #30 tablet 04/16/16 Allopurinol [Zyloprim -] 100 mg PO DAILY 07/21/18 Ferrous Sulfate [Iron] 325 mg PO DAILY 07/21/18 Amox-Tr/K Cl [Augmentin - 875Mg 1 tab PO BID #6 tablet 07/26/18 Tablet] ASSESSMENT AND PLAN: 58 year old male with a history of Gout, HLD, Prostate Cancer (s/p RTx implants) , seen in PACU for evaluation for sepsis s/p Cystoscopy with Laser Lithotripsy. 1. Nephrolithiasis s/p Cystoscopy with Laser Lithotripsy. Empirically treated with IV Zosyn (Day 4) for possible UTI - Urine Cx negative Afebrile, Hemodynamically Stable. Last fever 07/23/18 Tmax 100.4. Leukocytosis resolved. Abx transitioned to po Augmentin and to continue for 3 additional days on discharge to complete a 7 day course. 2. Obstructive Uropathy Creat improved today, now 0.9 Mild bilateral hydronephrosis on Renal US with non-obstructing nephrolithiasis Discussed with Dr. Munguia, who recommends no further intervention currently, with out-patient Urology follow up. Further management as per Urology. 3. Gout- chronic, no evidence of flare. Continue Allopurinol. Medically Stable for discharge with Urology out-patient follow up.
[2018-07-27] MEDS ORDERED: ALLOPURINOL 100 MG TABLET (FP) PO SCH (10:00)
[2018-07-29 10:10] LABS: URIC ACID 20 % (.); WEIGHT 2595.1 mg (.)
== END 2018-07-26 12:42 | disposition home or self-care (01) | DRG 465 ==
LOC: JASU-SURG 13:10 → JERBED 22:09 → J6S 22:57
PROVIDERS: ADMIT Internal Medicine
PROC: 0TCB8ZZ Extirpation of Matter from Bladder, Via Natural or Artificial Opening Endoscopic (ICD-10-PCS; principal; 2018-07-22 15:00)
DX: N21.0 Calculus in bladder (principal); A41.89 Other specified sepsis; N17.9 Acute kidney failure, unspecified; N13.39 Other hydronephrosis; N39.0 Urinary tract infection, site not specified; E78.5 Hyperlipidemia, unspecified; Z85.46 Personal history of malignant neoplasm of prostate; K57.30 Diverticulosis of large intestine without perforation or abscess without bleeding; Z90.49 Acquired absence of other specified parts of digestive tract; Z80.1 Family history of malignant neoplasm of trachea, bronchus and lung; M1A.9XX0 Chronic gout, unspecified, without tophus (tophi); N20.0 Calculus of kidney
CPT/HCPCS: 36415; 71045-TC-FY; 76775-TC; 80048; 81003; 82360; 82962; 83735; 84100; 85025; 85027; 87040; 87086; 88300-TC; 93005; 93010; 94760; J0131; J1644; J7030

== ENCOUNTER 2018-12-30 06:41 | Day surgery (SDC) | payer OTHER ==
[2018-12-29 14:51] VITALS: BMI 32.0
[2018-12-30] MEDS ORDERED: MIDAZOLAM HCL 2 MG/2 ML SINGLE DOSE VIAL ONE ×2 (09:10)
[2018-12-30] MEDS ORDERED: PROPOFOL 20 ML ONE (09:15)
[2018-12-30] MEDS ORDERED: SUCCINYLCHOLINE CHLORIDE 200 MG/10 ML SYRINGE ONE (09:16)
[2018-12-30] MEDS ORDERED: ceFAZolin SODIUM 1 GM VIAL IVPB ONE (09:20)
--- NOTE | 2018-12-30 09:31 | CONS ---
DATE OF CONSULTATION: 12/30/2018 Patient is a 58-year-old male with history of prostate cancer, underwent brachytherapy as well as androgen depravation therapy to the prostate. This occurred in 2016. His PSA as of July 2018 is 0.5. The patient has been having recurrent urinary tract infections, frequency, and dysuria. He does have history of gout. ALLERGIES: He is allergic to CODEINE. PHYSICAL EXAMINATION: Abdomen: Soft. There is no CVA tenderness. Genitalia: Atraumatic. Rectal: Prostate is 1+, flat, and nontender. The bladder revealed multiple bladder stones. There was also urethral stricture which was dilated. The patient is admitted today to undergo a cystourethroscopy and a cystolithotripsy. Joan [id number]
[2018-12-30] MEDS ORDERED: SEVOFLURANE 250 ML BTL ONE (09:54)
--- NOTE | 2018-12-30 10:23 | OP ---
Operative Note - Note: Operative Date: 12/30/18 Pre-Operative Diagnosis: bladder stones Operation: cystolithotripsy Findings: large bladder stones 4cm x 6cm. Post-Operative Diagnosis: Same as Pre-op Surgeon: Dorita Munguia Anesthesia: General Specimens Removed: stones fragments Estimated Blood Loss (mls): 0 Drains, Volume Out (mls): 0 Blood Volume Replaced (mls): 0 Fluid Volume Replaced (mls): 0 Operative Report Dictated: Yes
[2018-12-30] MEDS ORDERED: ACETAMINOPHEN 325 MG TABLET (FP) PO PRN (10:46)
[2018-12-30 11:26] VITALS: TEMP 97.9
[2018-12-30] MEDS ORDERED: ONDANSETRON 4 MG/2 ML VIAL IVPUSH PRN (11:27)
[2018-12-30] MEDS ORDERED: LACTATED RINGERS SOLUTION 1,000 ML IV SCH (11:30)
--- NOTE | 2018-12-30 12:20 | OP ---
DATE OF OPERATION: 12/30/2018 PREOPERATIVE DIAGNOSIS: History of prostate cancer, history of bladder stone. OPERATIVE PROCEDURE: Cystourethroscopy and cystolithotripsy. ANESTHESIA: General. DESCRIPTION OF PROCEDURE: Under above-stated anesthesia, patient was prepped and draped in the usual sterile manner. He was placed in the dorsal lithotomy position. Cystoscopy revealed a small, contracted bladder neck. The bladder was entered. Urine was collected for cytology and culture and sensitivity. Inspection of the bladder revealed a 4-cm x 6-cm yellow stone at the base of the bladder. There was a grade 2 trabeculation throughout. No overt lesions were noted. Ureteral orifices were within normal limits. Using a 1000 Holmium fiber at joules of 2.5 and a rate of 15, the stone was into multiple fragments. Fragments were then evacuated with an [employer] evacuator. No other stones were seen. Therefore, the bladder was emptied. The scope was removed. An 18-[place] Arellano was inserted. This was connected to a leg bag. The patient tolerated the procedure well. He returned to the recovery room in good condition. Joan [id number]
[2018-12-30 15:12] VITALS: BP 109/69; PULSE 53
--- NOTE | 2019-01-02 17:50 | PATH ---
Surgical Pathology Report Patient Name: ADRIANNA DELGADO [facility]. Rec. #: [id number] /Age/Gender: 1960 (Age: 58) / M Account: [id number] Location: [facility] Taken: 12/30/2018 Received: 12/30/2018 Reported: 01/02/2019 Physicians: Dorita Munguia M.D. Specimen(s) Received CALCULI Clinical History Bladder stone Final Diagnosis BLADDER STONE, LASER LITHOTRIPSY: BLADDER CALCULI. MACROSCOPIC DIAGNOSIS. Electronically Signed Lana Andrew M.D. Gross Description Received fresh labeled "bladder stone" is a 3 x 3 x 1 cm aggregate of ham, irregular to fragmented calculi. The specimen is sent for chemical analysis. MLJoannZ/12/30/2018 medhat/12/30/2018
--- NOTE | 2019-01-04 16:09 | PATH ---
Cytology Non-Gynecological Report Patient Name: ADRIANNA DELGADO [facility]. Rec. #: [id number] /Age/Gender: 1960 (Age: 58) / M Account: [id number] Location: [facility] Taken: 12/30/2018 Received: 12/30/2018 Reported: 01/04/2019 Physicians: Dorita Munguia M.D. Specimen(s) Received URINE VOIDED Clinical History Bladder calculi Final Diagnosis URINE FOR CYTOLOGY: SATISFACTORY FOR EVALUATION. NEGATIVE FOR HIGH GRADE UROTHELIAL CARCINOMA. NEUTROPHILS, RED BLOOD CELLS, SCATTERED BENIGN UROTHELIAL CELLS, AND SQUAMOUS CELLS PRESENT. Electronically Signed Sadaf Stoner M.D. Gross Description Approximately 50cc of yellow fluid received fresh. One slide prepared.
== END 2018-12-30 15:59 | disposition home or self-care (01) ==
LOC: JASU-SURG 06:41
PROVIDERS: ATTEND Urology
PROC: 0TCB8ZZ Extirpation of Matter from Bladder, Via Natural or Artificial Opening Endoscopic (ICD-10-PCS; principal; 2018-12-30 09:00)
DX: N21.0 Calculus in bladder (principal)
CPT/HCPCS: 36415; 74018-TC-FY; 82360; 87086; 87186; 88108; 88300-TC; 94760

== ENCOUNTER 2021-03-05 05:10 | Day surgery (SDC) | payer OTHER ==
[2021-02-28 12:08] VITALS: BMI 33.3
[2021-03-05] MEDS ORDERED: PROPOFOL 20 ML ONE (10:03)
[2021-03-05] MEDS ORDERED: ceFAZolin SODIUM 1 GM VIAL IVPB ONE (10:52)
[2021-03-05] MEDS ORDERED: ONDANSETRON 4 MG/2 ML VIAL IVPUSH PRN (11:34)
[2021-03-05] MEDS ORDERED: LACTATED RINGERS SOLUTION 1,000 ML IV SCH (11:45)
[2021-03-05 12:33] VITALS: BP 130/80; PULSE 63; TEMP 97.6
[2021-03-06] MEDS ORDERED: ALLOPURINOL 100 MG TABLET (FP) PO SCH (10:00)
[2021-03-06] MEDS ORDERED: ASPIRIN COATED 81 MG TABLET.EC PO SCH (10:00)
== END 2021-03-05 14:45 | disposition home or self-care (01) ==
LOC: JASU-SURG 05:10
PROVIDERS: ATTEND Urology
PROC: 3E0K8GC Introduction of Other Therapeutic Substance into Genitourinary Tract, Via Natural or Artificial Opening Endoscopic (ICD-10-PCS; 2021-03-05)
PROC: 3E0K8GC Introduction of Other Therapeutic Substance into Genitourinary Tract, Via Natural or Artificial Opening Endoscopic (ICD-10-PCS; 2021-03-05)
PROC: 3E0K8GC Introduction of Other Therapeutic Substance into Genitourinary Tract, Via Natural or Artificial Opening Endoscopic (ICD-10-PCS; principal; 2021-03-05 09:30)
DX: N39.3 Stress incontinence (female) (male) (principal)
CPT/HCPCS: 51715; L8603; 94760

== ENCOUNTER 2023-09-06 04:37 | Inpatient (IN) | payer OTHER ==
[2023-09-03 17:46] VITALS: BMI 32.0
[2023-09-06 12:56] LABS: POTASSIUM 4.3 mmol/L (3.5-5.1)
[2023-09-06 12:59] LABS: ALBUMIN 3.5 g/dl (3.4-5.0); BLOOD UREA NITROGEN 17.3 mg/dL (7-18); CALCIUM 8.8 mg/dL (8.5-10.1)
[2023-09-06 13:02] LABS: CREATININE 1.1 mg/dL (0.55-1.3)
[2023-09-06 13:04] LABS: BILIRUBIN,TOTAL 0.3 mg/dL (0.2-1)
[2023-09-06 13:05] LABS: TOT PROT 6.9 g/dl (6.4-8.2)
[2023-09-06] MEDS ORDERED: BUPIVACAINE HCL/PF 0.25% (2.5MG/ML) 10 ML VIAL ONE (13:32)
[2023-09-06] MEDS ORDERED: HEPARIN NA (PORCINE) 5,000 UNITS/ML 1ML VIAL ONE (14:01)
[2023-09-06] MEDS ORDERED: PROPOFOL 20 ML ONE (14:02)
[2023-09-06] MEDS ORDERED: MIDAZOLAM HCL 2 MG/2 ML SINGLE DOSE VIAL ONE (14:02)
[2023-09-06] MEDS ORDERED: FENTANYL CITRATE/PF 50 MCG/ML VIAL ONE ×5 (14:02→19:26)
[2023-09-06] MEDS ORDERED: SUCCINYLCHOLINE CHLORIDE 200 MG/10 ML SYRINGE ONE (14:17)
[2023-09-06] MEDS ORDERED: ROCURONIUM BROMIDE 50 MG/5 ML SYRINGE ONE ×2 (14:27→15:27)
[2023-09-06] MEDS: cefOXitin SODIUM 2 GM VIAL (RESTRICTED TO ID) IVPB ONE (14:35)
[2023-09-06] MEDS: BUPIVACAINE HCL/PF 0.25% (2.5MG/ML) 10 ML VIAL IJ ONE (14:49)
[2023-09-06] MEDS ORDERED: SUGAMMADEX SODIUM 200 MG/2 ML VIAL ONE (16:34)
[2023-09-06] MEDS: HEPARIN NA (PORCINE) PF 1,000 UNITS/ML - 2ML VIAL SQ ONE (17:50)
[2023-09-06] MEDS ORDERED: ONDANSETRON 4 MG/2 ML VIAL IVPUSH PRN (18:18)
[2023-09-06] MEDS ORDERED: ACETAMINOPHEN INJECTION 100 ML IVPB ONE (18:42)
[2023-09-06] MEDS: ACETAMINOPHEN 1000 MG/100 ML BAG IVPB ONE (18:45)
[2023-09-06] MEDS: ACETAMINOPHEN 325 MG TABLET (FP) PO PRN (22:20)
[2023-09-07] MEDS ORDERED: ACETAMINOPHEN 500 MG TABLET (FP) PO PRN (04:00)
[2023-09-07] MEDS: KETOROLAC TROMETHAMINE 15 MG/ML VIAL IVPUSH PRN (05:41)
[2023-09-07] MEDS: LACTATED RINGERS SOLUTION 1,000 ML IV SCH (05:48)
[2023-09-07] MEDS: ALLOPURINOL 100 MG TABLET (FP) PO SCH (09:23)
[2023-09-07] MEDS: SULFAMETHOXAZOLE/TRIMETHOPRIM 800MG/160MG D.S. TABLET PO SCH (12:31)
[2023-09-07] MEDS: ACETAMINOPHEN 500 MG TABLET (FP) PO SCH (12:32)
[2023-09-07] MEDS: KETOROLAC TROMETHAMINE 15 MG/ML VIAL IVPUSH SCH (14:42)
[2023-09-07] MEDS: IBUPROFEN 600 MG TABLET (FP) PO SCH (17:28)
[2023-09-08 15:29] VITALS: BP 120/87; PULSE 67; RESP 18; TEMP 97.5
== END 2023-09-08 15:28 | disposition home or self-care (01) | DRG 98 ==
LOC: JASUSAT 04:37 → J8W 20:25 → JASUSAT 20:26
PROVIDERS: ADMIT Surgery; ATTEND Surgery
PROC: B514ZZA Fluoroscopy of Left Jugular Veins, Guidance (ICD-10-PCS; 2023-09-06)
PROC: 0DH64UZ Insertion of Feeding Device into Stomach, Percutaneous Endoscopic Approach (ICD-10-PCS; 2023-09-06)
PROC: 0SH Lower Joints, Insertion (ICD-10-PCS; principal; 2023-09-06 13:45)
PROC: 0JH63XZ Insertion of Tunneled Vascular Access Device into Chest Subcutaneous Tissue and Fascia, Percutaneous Approach (ICD-10-PCS; 2023-09-06 13:45)
DX: C76.0 Malignant neoplasm of head, face and neck (principal)
CPT/HCPCS: 36415; 71045-TC-FY; 76000-TC-FY; 80053; 86850; 86900; 86901; 94010; 94760; C1788; J0131; J1644

== ENCOUNTER 2023-09-20 13:02 | Day surgery (SDC) | payer OTHER ==
[2023-09-20 12:56] LABS: BASO % 0.6 % (0-2.0); EOS % 1.9 % (0-4.5); HEMATOCRIT 41.7 % (35.4-49); HEMOGLOBIN 13.8 GM/dL (11.7-16.9); LYMPH % 31.7 % (8-40); MCH 29.2 pg (25.7-33.7); MCHC 33.1 g/dl (32.0-35.9); MEAN CELL VOLUME 88.1 fl (80-96); MEAN PLT VOLUME 6.4 fl (7.5-11.1); MONO % 7.4 % (3.8-10.2); NEUT % 58.4 % (42.8-82.8); PLATELET COUNT 430 10^3/uL (134-434); RBC 4.74 M/mm3 (4.00-5.60); RDW 14.3 % (11.9-15.9); WHITE BLOOD COUNT 5.5 K/mm3 (4.0-10.0)
[2023-09-20] MEDS: SODIUM CHLORIDE 1,000 ML IV ONE (13:09)
[2023-09-20 13:20] LABS: POTASSIUM 4.3 mmol/L (3.5-5.1)
[2023-09-20 13:22] LABS: BLOOD UREA NITROGEN 15.2 mg/dL (7-18)
[2023-09-20 13:23] LABS: MAGNESIUM 2.2 mg/dL (1.8-2.4)
[2023-09-20 13:25] LABS: BILIRUBIN,DIRECT 0.3 mg/dL (0.0-0.2); CREATININE 1.2 mg/dL (0.55-1.3)
[2023-09-20 13:27] LABS: BILIRUBIN,TOTAL 1.1 mg/dL (0.2-1); TOT PROT 7.6 g/dl (6.4-8.2)
[2023-09-20] MEDS: FOSAPREPITANT DIMEGLUMINE 150 MG in SODIUM CHLORIDE 145 ML IVPB ONE (13:33)
[2023-09-20] MEDS: PALONOSETRON HCL 0.25 MG/5 ML VIAL IVPUSH ONE (13:33)
[2023-09-20] MEDS: DEXAMETHASONE SODIUM PHOSPHATE 10 MG in SODIUM CHLORIDE 50 ML IVPB ONE (14:16)
[2023-09-20] MEDS: CISPLATIN IV ONE (14:51)
[2023-09-20] MEDS: SODIUM CHLORIDE IV ONE (14:51)
[2023-09-20] MEDS: POTASSIUM CHLORIDE 10 MEQ, MAGNESIUM SULFATE 1 GM in SODIUM CHLORIDE 1,000 ML IVPB ONE (15:00)
[2023-09-20 17:36] VITALS: BP 107/69; PULSE 55; RESP 16; TEMP 98.1
[2023-09-20] MEDS ORDERED: PORTA CATH FLUSH 10 ML IVPUSH PRN (17:36)
== END 2023-09-20 17:37 | disposition home or self-care (01) ==
LOC: JONCCHEMO 13:02 → J7W 13:03 → JONCCHEMO 17:37
PROVIDERS: ATTEND Internal Medicine Hematology & Oncology
DX: Z51.11 Encounter for antineoplastic chemotherapy (principal); C01 Malignant neoplasm of base of tongue
CPT/HCPCS: 36415; 80048; 80076; 83735; 85025; 96367; 96375; 96413; J1453; J2469

== ENCOUNTER 2023-09-27 10:53 | Day surgery (SDC) | payer OTHER ==
[2023-09-27 11:29] LABS: BASO % 0.5 % (0-2.0); EOS % 1.2 % (0-4.5); HEMATOCRIT 40.8 % (35.4-49); HEMOGLOBIN 13.4 GM/dL (11.7-16.9); LYMPH % 21.1 % (8-40); MCH 29.2 pg (25.7-33.7); MCHC 32.9 g/dl (32.0-35.9); MEAN CELL VOLUME 88.7 fl (80-96); MEAN PLT VOLUME 6.9 fl (7.5-11.1); MONO % 7.2 % (3.8-10.2); PLATELET COUNT 381 10^3/uL (134-434); RDW 13.2 % (11.9-15.9); WHITE BLOOD COUNT 5.8 K/mm3 (4.0-10.0)
[2023-09-27] MEDS: SODIUM CHLORIDE 1,000 ML IV ONE (11:42)
[2023-09-27 11:45] LABS: CHLORIDE 104 mmol/L (98-107); POTASSIUM 3.8 mmol/L (3.5-5.1); SODIUM 136 mmol/L (136-145)
[2023-09-27 11:48] LABS: ALBUMIN 3.8 g/dl (3.4-5.0); ANION GAP 9 mmol/L (4-13); BLOOD UREA NITROGEN 23.5 mg/dL (7-18); CALCIUM 9.6 mg/dL (8.5-10.1); CO2 24 mmol/L (21-32); MAGNESIUM 1.6 mg/dL (1.8-2.4)
[2023-09-27 11:50] LABS: GLUCOSE,RANDOM 117 mg/dL (74-106)
[2023-09-27 11:51] LABS: BILIRUBIN,DIRECT 0.2 mg/dL (0.0-0.2); CREATININE 1.4 mg/dL (0.55-1.3); SGOT/AST 18 U/L (15-37); SGPT/ALT 15 U/L (13-61)
[2023-09-27 11:53] LABS: BILIRUBIN,TOTAL 0.8 mg/dL (0.2-1); TOT PROT 7.3 g/dl (6.4-8.2)
[2023-09-27 11:55] LABS: ALK PHOS 76 U/L (45-117)
[2023-09-27] MEDS: FOSAPREPITANT DIMEGLUMINE 150 MG in SODIUM CHLORIDE 145 ML IVPB ONE (12:31)
[2023-09-27] MEDS: PALONOSETRON HCL 0.25 MG/5 ML VIAL IVPUSH ONE (13:02)
[2023-09-27] MEDS: DEXAMETHASONE SODIUM PHOSPHATE 10 MG in SODIUM CHLORIDE 50 ML IVPB ONE (13:03)
[2023-09-27] MEDS: SODIUM CHLORIDE IV ONE ×2 (13:35→13:37)
[2023-09-27] MEDS: CISPLATIN IV ONE ×2 (13:35→13:37)
[2023-09-27] MEDS: POTASSIUM CHLORIDE 10 MEQ, MAGNESIUM SULFATE 1 GM in SODIUM CHLORIDE 1,000 ML IVPB ONE (13:36)
[2023-09-27 13:39] VITALS: RESP 20; TEMP 98.5
[2023-09-27] MEDS: PORTA CATH FLUSH 10 ML IVPUSH PRN (16:00)
[2023-09-27 16:39] VITALS: BP 100/58; PULSE 60
== END 2023-09-27 16:42 | disposition home or self-care (01) ==
LOC: JONCCHEMO 10:53 → J7W 10:53 → JONCCHEMO 16:42
PROVIDERS: ATTEND Internal Medicine Hematology & Oncology
DX: Z51.11 Encounter for antineoplastic chemotherapy (principal); C01 Malignant neoplasm of base of tongue
CPT/HCPCS: 36415; 80048; 80076; 83735; 85025; 96367; 96375; 96413; J1453; J2469

== ENCOUNTER 2023-10-04 10:20 | Day surgery (SDC) | payer OTHER ==
[2023-10-04] MEDS: SODIUM CHLORIDE 1,000 ML IV ONE (10:50)
[2023-10-04 11:04] LABS: BASO % 0.6 % (0-2.0); EOS % 0.8 % (0-4.5); HEMATOCRIT 37.5 % (35.4-49); HEMOGLOBIN 12.3 GM/dL (11.7-16.9); MCH 28.9 pg (25.7-33.7); MEAN CELL VOLUME 87.6 fl (80-96); MEAN PLT VOLUME 6.8 fl (7.5-11.1); MONO % 9.2 % (3.8-10.2); NEUT % 78.4 % (42.8-82.8); PLATELET COUNT 348 10^3/uL (134-434); RBC 4.28 M/mm3 (4.00-5.60); RDW 13.3 % (11.9-15.9); WHITE BLOOD COUNT 5.2 K/mm3 (4.0-10.0)
[2023-10-04 11:22] LABS: CHLORIDE 104 mmol/L (98-107); POTASSIUM 4.2 mmol/L (3.5-5.1); SODIUM 137 mmol/L (136-145)
[2023-10-04 11:24] LABS: ANION GAP 5 mmol/L (4-13); BLOOD UREA NITROGEN 23.5 mg/dL (7-18); CALCIUM 8.9 mg/dL (8.5-10.1); CO2 28 mmol/L (21-32)
[2023-10-04 11:25] LABS: ALBUMIN 3.7 g/dl (3.4-5.0); GLUCOSE,RANDOM 115 mg/dL (74-106); MAGNESIUM 2.2 mg/dL (1.8-2.4)
[2023-10-04 11:27] LABS: BILIRUBIN,DIRECT 0.2 mg/dL (0.0-0.2); CREATININE 1.5 mg/dL (0.55-1.3); SGOT/AST 15 U/L (15-37); SGPT/ALT 18 U/L (13-61)
[2023-10-04 11:29] LABS: BILIRUBIN,TOTAL 0.6 mg/dL (0.2-1); TOT PROT 7.1 g/dl (6.4-8.2)
[2023-10-04 11:30] LABS: ALK PHOS 70 U/L (45-117)
[2023-10-04] MEDS: FOSAPREPITANT DIMEGLUMINE 150 MG in SODIUM CHLORIDE 145 ML IVPB ONE (11:50)
[2023-10-04] MEDS: PALONOSETRON HCL 0.25 MG/5 ML VIAL IVPUSH ONE (12:34)
[2023-10-04] MEDS: DEXAMETHASONE SODIUM PHOSPHATE 10 MG in SODIUM CHLORIDE 50 ML IVPB ONE (12:34)
[2023-10-04] MEDS: POTASSIUM CHLORIDE 10 MEQ, MAGNESIUM SULFATE 1 GM in SODIUM CHLORIDE 1,000 ML IVPB ONE (13:00)
[2023-10-04] MEDS: SODIUM CHLORIDE IV ONE (13:09)
[2023-10-04] MEDS: CISPLATIN IV ONE (13:09)
[2023-10-04] MEDS: PORTA CATH FLUSH 10 ML IVPUSH PRN (15:15)
[2023-10-04 17:45] VITALS: RESP 20; TEMP 99
[2023-10-04 17:51] VITALS: BP 106/68; PULSE 66
== END 2023-10-04 15:30 | disposition home or self-care (01) ==
LOC: JONCCHEMO 10:20 → J7W 10:21 → JONCCHEMO 15:30
PROVIDERS: ATTEND Internal Medicine Hematology & Oncology
DX: Z51.11 Encounter for antineoplastic chemotherapy (principal); C01 Malignant neoplasm of base of tongue
CPT/HCPCS: 36415; 80048; 80076; 83735; 85025; 96367; 96375; 96413; J1453; J2469

== ENCOUNTER 2023-10-18 10:32 | Day surgery (SDC) | payer OTHER ==
[2023-10-18] MEDS ORDERED: CISPLATIN IV ONE (11:00)
[2023-10-18] MEDS ORDERED: SODIUM CHLORIDE IV ONE (11:00)
[2023-10-18 11:06] LABS: HEMOGLOBIN 12.5 GM/dL (11.7-16.9); WHITE BLOOD COUNT 3.7 K/mm3 (4.0-10.0)
[2023-10-18 11:07] LABS: BASO % 0.9 % (0-2.0); EOS % 0.9 % (0-4.5); HEMATOCRIT 37.4 % (35.4-49); LYMPH % 15.4 % (8-40); MCH 29.2 pg (25.7-33.7); MCHC 33.5 g/dl (32.0-35.9); MEAN PLT VOLUME 6.3 fl (7.5-11.1); MONO % 9.4 % (3.8-10.2); NEUT % 73.4 % (42.8-82.8); PLATELET COUNT 290 10^3/uL (134-434); RDW 13.3 % (11.9-15.9)
[2023-10-18] MEDS: SODIUM CHLORIDE 1,000 ML IV ONE (11:23)
[2023-10-18 11:36] LABS: POTASSIUM 4.3 mmol/L (3.5-5.1)
[2023-10-18 11:39] LABS: ALBUMIN 3.4 g/dl (3.4-5.0); CALCIUM 8.7 mg/dL (8.5-10.1); MAGNESIUM 1.9 mg/dL (1.8-2.4)
[2023-10-18 11:42] LABS: BILIRUBIN,DIRECT 0.2 mg/dL (0.0-0.2); CREATININE 1.5 mg/dL (0.55-1.3)
[2023-10-18 11:44] LABS: BILIRUBIN,TOTAL 0.8 mg/dL (0.2-1); TOT PROT 7.5 g/dl (6.4-8.2)
[2023-10-18] MEDS: FOSAPREPITANT DIMEGLUMINE 150 MG in SODIUM CHLORIDE 145 ML IVPB ONE (13:53)
[2023-10-18] MEDS: PALONOSETRON HCL 0.25 MG/5 ML VIAL IVPUSH ONE (14:26)
[2023-10-18] MEDS: DEXAMETHASONE SODIUM PHOSPHATE 10 MG in SODIUM CHLORIDE 50 ML IVPB ONE (14:28)
[2023-10-18] MEDS: CISPLATIN IV ONE (15:00)
[2023-10-18] MEDS: SODIUM CHLORIDE IV ONE (15:00)
[2023-10-18] MEDS: POTASSIUM CHLORIDE 10 MEQ, MAGNESIUM SULFATE 1 GM in SODIUM CHLORIDE 1,000 ML IVPB ONE (16:02)
[2023-10-18 16:33] VITALS: RESP 20; TEMP 98.2
[2023-10-18] MEDS: PORTA CATH FLUSH 10 ML IVPUSH PRN (18:10)
[2023-10-18 18:19] VITALS: BP 112/78; PULSE 68
== END 2023-10-18 18:26 | disposition home or self-care (01) ==
LOC: JONCCHEMO 10:32 → J7W 10:33 → JONCCHEMO 18:26
PROVIDERS: ATTEND Internal Medicine Hematology & Oncology
DX: Z51.11 Encounter for antineoplastic chemotherapy (principal); C01 Malignant neoplasm of base of tongue
CPT/HCPCS: 36415; 80048; 80076; 83735; 85025; 96367; 96375; 96413; J1453; J2469

== ENCOUNTER 2023-10-25 11:38 | Inpatient (IN) | payer OTHER ==
[2023-10-25] MEDS ORDERED: ACETAMINOPHEN INJECTION 100 ML IVPB ONE (12:48)
[2023-10-25] MEDS: ACETAMINOPHEN 1000 MG/100 ML BAG IVPB ONE (13:25)
[2023-10-25] MEDS: SODIUM CHLORIDE 0.9% 500 ML INFUS.BAG IV ONE (13:25)
[2023-10-25 13:50] LABS: BASO % 0.5 % (0-2.0); EOS % 0.7 % (0-4.5); HEMATOCRIT 35.4 % (35.4-49); HEMOGLOBIN 11.5 GM/dL (11.7-16.9); LYMPH % 10.4 % (8-40); MCH 28.9 pg (25.7-33.7); MCHC 32.5 g/dl (32.0-35.9); MEAN CELL VOLUME 88.8 fl (80-96); MEAN PLT VOLUME 6.6 fl (7.5-11.1); MONO % 6.5 % (3.8-10.2); NEUT % 81.9 % (42.8-82.8); PLATELET COUNT 231 10^3/uL (134-434); RBC 3.98 M/mm3 (4.00-5.60); RDW 13.2 % (11.9-15.9); WHITE BLOOD COUNT 3.6 K/mm3 (4.0-10.0)
[2023-10-25 14:08] LABS: POTASSIUM 4.4 mmol/L (3.5-5.1)
[2023-10-25 14:10] LABS: ALBUMIN 3.5 g/dl (3.4-5.0); BLOOD UREA NITROGEN 24.5 mg/dL (7-18)
[2023-10-25 14:14] LABS: CREATININE 1.5 mg/dL (0.55-1.3)
[2023-10-25 14:15] LABS: BILIRUBIN,TOTAL 0.5 mg/dL (0.2-1); TOT PROT 7.3 g/dl (6.4-8.2)
[2023-10-25 14:29] LABS: INR 1.13 (0.83-1.09)
[2023-10-25 14:32] LABS: ACTIVATED PTT 31.7 SECONDS (25.2-36.5)
[2023-10-25] MEDS: CEFAZOLIN 1 GM in DEXTROSE 5%-WATER - 50 ML IVPB ONE (18:32)
[2023-10-25] MEDS ORDERED: ONDANSETRON 4 MG/2 ML VIAL ONE (18:44)
[2023-10-25] MEDS: DEXTROSE 5%-WATER - 1,000 ML IV SCH (18:51)
[2023-10-25] MEDS: ONDANSETRON 4 MG/2 ML VIAL IVPUSH ONE (18:52)
[2023-10-25] MEDS: HEPARIN NA (PORCINE) 5,000 UNITS/ML 1ML VIAL SQ SCH (21:34)
[2023-10-25] MEDS: AMPICILLIN NA/SULBACTAM NA 3 GM in SODIUM CHLORIDE 100 ML IVPB SCH (21:34)
[2023-10-25] MEDS: LACTATED RINGERS SOLUTION 1,000 ML/1,000 ML INFUS.BAG IV SCH (21:45)
[2023-10-26] MEDS: FAMOTIDINE 20 MG TABLET PO SCH (10:08)
[2023-10-26] MEDS: ONDANSETRON 4 MG/2 ML VIAL IVPUSH PRN (10:11)
[2023-10-26] MEDS: ACETAMINOPHEN 500 MG TABLET (FP) PO PRN (10:11)
[2023-10-26 12:19] LABS: BASO % 0.4 % (0-2.0); EOS % 1.2 % (0-4.5); HEMATOCRIT 31.1 % (35.4-49); HEMOGLOBIN 10.4 GM/dL (11.7-16.9); LYMPH % 12.9 % (8-40); MCH 28.9 pg (25.7-33.7); MCHC 33.3 g/dl (32.0-35.9); MEAN CELL VOLUME 86.8 fl (80-96); MEAN PLT VOLUME 6.4 fl (7.5-11.1); MONO % 9.4 % (3.8-10.2); NEUT % 76.1 % (42.8-82.8); PLATELET COUNT 191 10^3/uL (134-434); RBC 3.59 M/mm3 (4.00-5.60); RDW 13.3 % (11.9-15.9); WHITE BLOOD COUNT 2.7 K/mm3 (4.0-10.0)
[2023-10-26 12:39] LABS: POTASSIUM 4.2 mmol/L (3.5-5.1)
[2023-10-26 12:45] LABS: CALCIUM 8.5 mg/dL (8.5-10.1)
[2023-10-26 12:46] LABS: BLOOD UREA NITROGEN 19.6 mg/dL (7-18)
[2023-10-26 12:49] LABS: CREATININE 1.4 mg/dL (0.55-1.3)
[2023-10-26 14:34] LABS: EPI CELLS 20 /uL (0-25.1); HYALINE CASTS 0 /uL (0-3.1); URINE APPEARANCE CLEAR; URINE BACTERIA 372 /uL (0-1359); URINE BILIRUBIN NEGATIVE (NEGATIVE); URINE COLOR YELLOW; URINE GLUCOSE (UA) NEGATIVE (NEGATIVE); URINE KETONE TRACE (NEGATIVE); URINE LEUK ESTERASE TRACE (NEGATIVE); URINE NITRITE NEGATIVE (NEGATIVE); URINE PROTEIN TRACE (NEGATIVE); URINE RBC 18 /uL (0-23.9); URINE WBC 74 /uL (0-25.8)
[2023-10-26] MEDS: NYSTATIN 500,000 UNITS/5 ML SUSPENSION PO SCH (17:48)
[2023-10-27 09:21] LABS: HEMATOCRIT 30.3 % (35.4-49); HEMOGLOBIN 10.2 GM/dL (11.7-16.9); MCH 29.1 pg (25.7-33.7); MCHC 33.7 g/dl (32.0-35.9); MEAN CELL VOLUME 86.4 fl (80-96); MEAN PLT VOLUME 6.6 fl (7.5-11.1); PLATELET COUNT 191 10^3/uL (134-434); RBC 3.51 M/mm3 (4.00-5.60); RDW 13.1 % (11.9-15.9); WHITE BLOOD COUNT 2.4 K/mm3 (4.0-10.0)
[2023-10-27 09:42] LABS: POTASSIUM 3.7 mmol/L (3.5-5.1)
[2023-10-27 09:53] LABS: CALCIUM 8.2 mg/dL (8.5-10.1)
[2023-10-27 09:54] LABS: BLOOD UREA NITROGEN 12.3 mg/dL (7-18); MAGNESIUM 1.5 mg/dL (1.8-2.4)
[2023-10-27 09:56] LABS: PHOSPHOROUS 3.1 mg/dL (2.5-4.9)
[2023-10-27 09:57] LABS: CREATININE 1.2 mg/dL (0.55-1.3)
[2023-10-27 09:58] LABS: BILIRUBIN,TOTAL 0.3 mg/dL (0.2-1)
[2023-10-27 10:00] LABS: TOT PROT 5.5 g/dl (6.4-8.2)
[2023-10-27] MEDS: ALPRAZolam 0.25 MG TABLET PO SCH (10:02)
[2023-10-27 10:03] LABS: ALBUMIN 2.6 g/dl (3.4-5.0)
[2023-10-27] MEDS: MAGNESIUM SULF 50% (8.12 MEQ/2 ML-1 GM VIAL) IVPB ONE (15:10)
[2023-10-28 09:40] LABS: EOS % 0.8 % (0-4.5); HEMATOCRIT 33.5 % (35.4-49); HEMOGLOBIN 11.2 GM/dL (11.7-16.9); LYMPH % 12.1 % (8-40); MCH 29.3 pg (25.7-33.7); MCHC 33.4 g/dl (32.0-35.9); MEAN CELL VOLUME 87.7 fl (80-96); MONO % 7.7 % (3.8-10.2); NEUT % 78.4 % (42.8-82.8); PLATELET COUNT 168 10^3/uL (134-434); RBC 3.82 M/mm3 (4.00-5.60); WHITE BLOOD COUNT 2.7 K/mm3 (4.0-10.0)
[2023-10-28 10:39] LABS: POTASSIUM 4.1 mmol/L (3.5-5.1)
[2023-10-28 10:50] LABS: ALBUMIN 2.8 g/dl (3.4-5.0); BLOOD UREA NITROGEN 9.3 mg/dL (7-18); CALCIUM 8.5 mg/dL (8.5-10.1)
[2023-10-28 10:52] LABS: BILIRUBIN,TOTAL 0.4 mg/dL (0.2-1); CREATININE 1.3 mg/dL (0.55-1.3)
[2023-10-28 10:54] LABS: TOT PROT 6.1 g/dl (6.4-8.2)
[2023-10-28 15:06] LABS: MAGNESIUM 1.7 mg/dL (1.8-2.4)
[2023-10-28 15:09] LABS: PHOSPHOROUS 3.2 mg/dL (2.5-4.9)
[2023-10-28] MEDS: ALLOPURINOL 100 MG TABLET (FP) PO SCH (16:15)
[2023-10-28] MEDS: MAGNESIUM SULF 50% (8.12 MEQ/2 ML-1 GM VIAL) IVPB ONE (16:43)
[2023-10-28] MEDS ORDERED: SIMETHICONE 80 MG TAB.CHEW (FP) PO PRN (18:52)
[2023-10-28] MEDS: ONDANSETRON 4 MG/2 ML VIAL IVPUSH ONE (19:07)
[2023-10-28] MEDS: LIPASE/PROTEASE/AMYLASE 36,000 UNIT CAPSULE PO SCH (19:45)
[2023-10-28] MEDS: POLYETHYLENE GLYCOL (HEALTHYLAX) 3350 17 GM PACKET PO SCH (21:11)
[2023-10-28] MEDS ORDERED: RIFAXIMIN 550 MG TABLET PO SCH (22:00)
[2023-10-29] MEDS: AMOX TR/POT CLAV 875MG/125MG TABLETS (FP) PO SCH (09:04)
[2023-10-29 10:11] LABS: HEMATOCRIT 35.3 % (35.4-49); HEMOGLOBIN 11.6 GM/dL (11.7-16.9); MCHC 32.7 g/dl (32.0-35.9); MEAN CELL VOLUME 88.7 fl (80-96); MEAN PLT VOLUME 6.6 fl (7.5-11.1); PLATELET COUNT 191 10^3/uL (134-434); RBC 3.98 M/mm3 (4.00-5.60); RDW 13.3 % (11.9-15.9); WHITE BLOOD COUNT 3.3 K/mm3 (4.0-10.0)
[2023-10-29 10:30] LABS: BLOOD UREA NITROGEN 11.4 mg/dL (7-18); MAGNESIUM 1.8 mg/dL (1.8-2.4)
[2023-10-29 10:34] LABS: CREATININE 1.4 mg/dL (0.55-1.3); PHOSPHOROUS 3.3 mg/dL (2.5-4.9)
[2023-10-29 10:36] LABS: BILIRUBIN,TOTAL 0.4 mg/dL (0.2-1); TOT PROT 6.4 g/dl (6.4-8.2)
[2023-10-29] MEDS: POLYETHYLENE GLYCOL 3350 255 GM BTL PO ONE (12:44)
[2023-10-29] MEDS: POLYETHYLENE GLYCOL (HEALTHYLAX) 3350 17 GM PACKET PO SCH (12:44)
[2023-10-29 15:25] VITALS: BMI 30.9
[2023-10-29] MEDS ORDERED: COLCHICINE 0.6 MG CAPSULE PO SCH (15:45)
[2023-10-30 08:45] LABS: URIC ACID 5.9 mg/dL (2.6-7.2)
[2023-10-30 09:13] LABS: POTASSIUM 4.1 mmol/L (3.5-5.1)
[2023-10-30 09:13] LABS: HEMATOCRIT 33.4 % (35.4-49); HEMOGLOBIN 11.3 GM/dL (11.7-16.9); MCH 29.2 pg (25.7-33.7); MCHC 33.8 g/dl (32.0-35.9); MEAN CELL VOLUME 86.4 fl (80-96); MEAN PLT VOLUME 6.9 fl (7.5-11.1); PLATELET COUNT 192 10^3/uL (134-434); RBC 3.87 M/mm3 (4.00-5.60); RDW 13.5 % (11.9-15.9); WHITE BLOOD COUNT 4.6 K/mm3 (4.0-10.0)
[2023-10-30 09:15] LABS: ALBUMIN 2.9 g/dl (3.4-5.0); BLOOD UREA NITROGEN 14.4 mg/dL (7-18); CALCIUM 8.6 mg/dL (8.5-10.1)
[2023-10-30 09:18] LABS: URIC ACID 5.6 mg/dL (2.6-7.2)
[2023-10-30 09:19] LABS: CREATININE 1.4 mg/dL (0.55-1.3)
[2023-10-30 09:20] LABS: BILIRUBIN,TOTAL 0.6 mg/dL (0.2-1); TOT PROT 6.3 g/dl (6.4-8.2)
[2023-10-30] MEDS: LIDOCAINE 4% PATCH TP SCH (09:36)
[2023-10-30] MEDS: COLCHICINE 0.6 MG TAB PO SCH (09:37)
[2023-10-30] MEDS: ACETAMINOPHEN 325 MG TABLET (FP) PO SCH (13:03)
[2023-10-30 15:01] VITALS: RESP 18
[2023-10-30] MEDS: ACETAMINOPHEN 1000 MG/100 ML BAG IVPB ONE (15:38)
[2023-10-30] MEDS: LIDOCAINE PATCH REMOVAL MC SCH (21:39)
[2023-10-31 10:01] LABS: HEMATOCRIT 32.5 % (35.4-49); HEMOGLOBIN 10.9 GM/dL (11.7-16.9); MCH 29.2 pg (25.7-33.7); MCHC 33.6 g/dl (32.0-35.9); MEAN PLT VOLUME 6.9 fl (7.5-11.1); PLATELET COUNT 221 10^3/uL (134-434); RBC 3.74 M/mm3 (4.00-5.60); RDW 13.8 % (11.9-15.9)
[2023-10-31 10:24] LABS: POTASSIUM 4.5 mmol/L (3.5-5.1)
[2023-10-31 10:34] LABS: CALCIUM 9.1 mg/dL (8.5-10.1)
[2023-10-31 10:35] LABS: ALBUMIN 2.9 g/dl (3.4-5.0); BLOOD UREA NITROGEN 16.3 mg/dL (7-18); MAGNESIUM 1.7 mg/dL (1.8-2.4)
[2023-10-31 10:38] LABS: CREATININE 1.3 mg/dL (0.55-1.3)
[2023-10-31 10:39] LABS: BILIRUBIN,TOTAL 0.5 mg/dL (0.2-1); TOT PROT 6.4 g/dl (6.4-8.2)
[2023-10-31] MEDS: LIDOCAINE 5% TOPICAL PATCH TP SCH (14:30)
[2023-10-31] MEDS: IBUPROFEN 400 MG TABLET (FP) PO SCH (14:31)
[2023-10-31] MEDS ORDERED: ACETAMINOPHEN 325 MG TABLET (FP) PO PRN ×2 (18:08→18:14)
[2023-10-31] MEDS: TRIMETHOBENZAMIDE HCL 200MG/2ML INJ IM ONE (21:47)
[2023-10-31] MEDS: LIDOCAINE PATCH REMOVAL MC SCH (21:48)
[2023-11-01] MEDS ORDERED: MAGNESIUM 1GM/D5W - 1 GM/100 ML IVPB IVPB ONE (10:00)
[2023-11-01] MEDS: MAGNESIUM 1GM/D5W - 1 GM/100 ML IVPB IVPB ONE (13:15)
[2023-11-01 14:35] VITALS: BP 108/79; PULSE 56; TEMP 98.2
== END 2023-11-01 15:53 | disposition home or self-care (01) | DRG 252 ==
LOC: JER 11:38 → JERBED 15:23 → J6S 20:30
PROVIDERS: ADMIT Internal Medicine; ATTEND Internal Medicine
DX: K94.22 Gastrostomy infection (principal); D70.1 Agranulocytosis secondary to cancer chemotherapy; L03.311 Cellulitis of abdominal wall; B37.0 Candidal stomatitis; C76.0 Malignant neoplasm of head, face and neck; D64.9 Anemia, unspecified; E86.0 Dehydration; M10.9 Gout, unspecified; K59.00 Constipation, unspecified; M25.462 Effusion, left knee; T45.1X5A Adverse effect of antineoplastic and immunosuppressive drugs, initial encounter; B95.61 Methicillin susceptible Staphylococcus aureus infection as the cause of diseases classified elsewhere; Z85.46 Personal history of malignant neoplasm of prostate; Y83.8 Other surgical procedures as the cause of abnormal reaction of the patient, or of later complication, without mention of misadventure at the time of the procedure
CPT/HCPCS: 0241U-QW; 36415; 71045-TC-FY; 73630-TC-LT; 73700-TC-RT; 74018-TC-FY; 80048; 80053; 81003; 82272; 82533; 82550; 82728; 83540; 83550; 83735; 84100; 84484; 84550; 85025; 85027; 85610; 85651; 85730; 86140; 86850; 86900; 86901; 87070; 87086; 87186; 87205; 97116-GP; 97161-GP; 99285-25; J0131; J1644

== ENCOUNTER 2023-11-29 12:20 | Day surgery (SDC) | payer OTHER ==
[2023-11-29 13:18] LABS: BASO % 0.8 % (0-2.0); EOS % 0.6 % (0-4.5); HEMATOCRIT 35.8 % (35.4-49); HEMOGLOBIN 11.9 GM/dL (11.7-16.9); LYMPH % 7.7 % (8-40); MCHC 33.2 g/dl (32.0-35.9); MEAN CELL VOLUME 87.5 fl (80-96); MONO % 7.5 % (3.8-10.2); NEUT % 83.4 % (42.8-82.8); PLATELET COUNT 346 10^3/uL (134-434); RDW 14.9 % (11.9-15.9)
[2023-11-29] MEDS: SODIUM CHLORIDE 1,000 ML IV ONE (13:35)
[2023-11-29 13:38] LABS: CHLORIDE 102 mmol/L (98-107); POTASSIUM 4.8 mmol/L (3.5-5.1); SODIUM 139 mmol/L (136-145)
[2023-11-29 13:39] LABS: CALCIUM 9.8 mg/dL (8.5-10.1)
[2023-11-29 13:40] LABS: ANION GAP 9 mmol/L (4-13); BLOOD UREA NITROGEN 24.4 mg/dL (7-18); CO2 28 mmol/L (21-32); GLUCOSE,RANDOM 116 mg/dL (74-106); MAGNESIUM 2.1 mg/dL (1.8-2.4)
[2023-11-29 13:44] LABS: CREATININE 1.4 mg/dL (0.55-1.3)
[2023-11-29 13:48] LABS: ALBUMIN 3.7 g/dl (3.4-5.0)
[2023-11-29 13:51] LABS: BILIRUBIN,DIRECT 0.2 mg/dL (0.0-0.2)
[2023-11-29 13:53] LABS: BILIRUBIN,TOTAL 0.6 mg/dL (0.2-1); TOT PROT 7.3 g/dl (6.4-8.2)
[2023-11-29] MEDS: DEXAMETHASONE SODIUM PHOSPHATE 10 MG in SODIUM CHLORIDE 50 ML IVPB ONE (14:25)
[2023-11-29] MEDS: PALONOSETRON HCL 0.25 MG/5 ML VIAL IVPUSH ONE (14:47)
[2023-11-29] MEDS: FOSAPREPITANT DIMEGLUMINE 150 MG in SODIUM CHLORIDE 145 ML IVPB ONE (14:47)
[2023-11-29] MEDS: POTASSIUM CHLORIDE 10 MEQ, MAGNESIUM SULFATE 1 GM in SODIUM CHLORIDE 1,000 ML IVPB ONE (16:30)
[2023-11-29] MEDS: PORTA CATH FLUSH 10 ML IVPUSH PRN (18:30)
[2023-11-29 18:36] VITALS: RESP 18; TEMP 98.2
[2023-11-29 18:56] VITALS: BP 111/70; PULSE 60
== END 2023-11-29 18:40 | disposition home or self-care (01) ==
LOC: J7W 12:20 → JONCCHEMO 12:20
PROVIDERS: ATTEND Internal Medicine Hematology & Oncology
PROC: 3E04305 Introduction of Other Antineoplastic into Central Vein, Percutaneous Approach (ICD-10-PCS; principal; 2023-11-29)
PROC: 3E0437Z Introduction of Electrolytic and Water Balance Substance into Central Vein, Percutaneous Approach (ICD-10-PCS; 2023-11-29)
DX: Z51.11 Encounter for antineoplastic chemotherapy (principal); C01 Malignant neoplasm of base of tongue
CPT/HCPCS: 36415; 80048; 80076; 83735; 85025; 96361; 96367; 96375; 96413; J1453; J2469

== ENCOUNTER 2023-12-06 12:30 | Day surgery (SDC) | payer OTHER ==
[~2023-12-06 12:30] MED LIST: CISPLATIN IV ONE; DEXAMETHASONE SODIUM PHOSPHATE 10 MG in SODIUM CHLORIDE 50 ML IVPB ONE; FOSAPREPITANT DIMEGLUMINE 150 MG in SODIUM CHLORIDE 145 ML IVPB ONE; PALONOSETRON HCL 0.25 MG/5 ML VIAL IVPUSH ONE; POTASSIUM CHLORIDE 10 MEQ, MAGNESIUM SULFATE 1 GM in SODIUM CHLORIDE 1,000 ML IVPB ONE; SODIUM CHLORIDE 1,000 ML IV ONE; SODIUM CHLORIDE IV ONE
[2023-12-06] MEDS: SODIUM CHLORIDE 1,000 ML IV ONE (13:00)
[2023-12-06 13:23] LABS: BASO % 0.2 % (0-2.0); EOS % 0.8 % (0-4.5); HEMATOCRIT 35.3 % (35.4-49); HEMOGLOBIN 11.4 GM/dL (11.7-16.9); LYMPH % 5.6 % (8-40); MCHC 32.4 g/dl (32.0-35.9); MEAN CELL VOLUME 89.4 fl (80-96); MONO % 7.6 % (3.8-10.2); NEUT % 85.8 % (42.8-82.8); PLATELET COUNT 345 10^3/uL (134-434); RBC 3.94 M/mm3 (4.00-5.60); WHITE BLOOD COUNT 5.8 K/mm3 (4.0-10.0)
[2023-12-06 13:40] LABS: CHLORIDE 103 mmol/L (98-107); POTASSIUM 4.7 mmol/L (3.5-5.1); SODIUM 139 mmol/L (136-145)
[2023-12-06 13:46] LABS: ALBUMIN 3.7 g/dl (3.4-5.0); ANION GAP 8 mmol/L (4-13); BLOOD UREA NITROGEN 21.4 mg/dL (7-18); CALCIUM 9.6 mg/dL (8.5-10.1); CO2 28 mmol/L (21-32); GLUCOSE,RANDOM 115 mg/dL (74-106); MAGNESIUM 1.9 mg/dL (1.8-2.4)
[2023-12-06 13:49] LABS: BILIRUBIN,DIRECT 0.4 mg/dL (0.0-0.2); CREATININE 1.5 mg/dL (0.55-1.3); SGPT/ALT 16 U/L (13-61)
[2023-12-06 13:50] LABS: BILIRUBIN,TOTAL 0.8 mg/dL (0.2-1)
[2023-12-06 13:52] LABS: ALK PHOS 65 U/L (45-117)
[2023-12-06 13:55] LABS: SGOT/AST 11 U/L (15-37)
[2023-12-06] MEDS: FOSAPREPITANT DIMEGLUMINE 150 MG in SODIUM CHLORIDE 145 ML IVPB ONE (14:12)
[2023-12-06] MEDS: PALONOSETRON HCL 0.25 MG/5 ML VIAL IVPUSH ONE (14:32)
[2023-12-06] MEDS: DEXAMETHASONE SODIUM PHOSPHATE 10 MG in SODIUM CHLORIDE 50 ML IVPB ONE (14:48)
[2023-12-06] MEDS: SODIUM CHLORIDE IV ONE (15:10)
[2023-12-06] MEDS: CISPLATIN IV ONE (15:10)
[2023-12-06] MEDS: POTASSIUM CHLORIDE 10 MEQ, MAGNESIUM SULFATE 1 GM in SODIUM CHLORIDE 1,000 ML IVPB ONE (16:14)
[2023-12-06] MEDS: PORTA CATH FLUSH 10 ML IVPUSH PRN (18:50)
[2023-12-06 19:05] VITALS: BP 117/79; PULSE 65; RESP 18; TEMP 98
== END 2023-12-06 18:55 | disposition home or self-care (01) ==
LOC: JONCCHEMO 12:30 → J7W 12:45 → JONCCHEMO 18:55
PROVIDERS: ATTEND Internal Medicine Hematology & Oncology
PROC: 3E04305 Introduction of Other Antineoplastic into Central Vein, Percutaneous Approach (ICD-10-PCS; principal; 2023-12-06)
PROC: 3E0437Z Introduction of Electrolytic and Water Balance Substance into Central Vein, Percutaneous Approach (ICD-10-PCS; 2023-12-06)
DX: Z51.11 Encounter for antineoplastic chemotherapy (principal); C01 Malignant neoplasm of base of tongue
CPT/HCPCS: 36415; 80048; 80076; 83735; 85025; 96361; 96367; 96375; 96413; J1453; J2469

== ENCOUNTER 2023-12-13 13:55 | Observation (INO) | payer OTHER ==
[2023-12-13] MEDS ORDERED: ONDANSETRON 4 MG/2 ML VIAL ONE (17:05)
[2023-12-13] MEDS ORDERED: ACETAMINOPHEN INJECTION 100 ML ONE (17:05)
[2023-12-13] MEDS ORDERED: FAMOTIDINE 20 MG/50 ML IVPB 20 MG/50 ML MG IVPB ONE (17:06)
[2023-12-13] MEDS: FAMOTIDINE 20 MG/50 ML IVPB 20 MG/50 ML MG IVPB ONE (18:15)
[2023-12-13] MEDS: ACETAMINOPHEN 1000 MG/100 ML BAG IVPB ONE (18:15)
[2023-12-13] MEDS: SODIUM CHLORIDE 1,000 ML IV STA (18:15)
[2023-12-13] MEDS: ONDANSETRON 4 MG/2 ML VIAL IVPUSH ONE (18:15)
[2023-12-13 18:26] LABS: BASO % 0.3 % (0-2.0); EOS % 0.9 % (0-4.5); HEMATOCRIT 34.5 % (35.4-49); HEMOGLOBIN 11.3 GM/dL (11.7-16.9); LYMPH % 3.5 % (8-40); MCHC 32.8 g/dl (32.0-35.9); MEAN CELL VOLUME 88.4 fl (80-96); MEAN PLT VOLUME 6.8 fl (7.5-11.1); MONO % 6.2 % (3.8-10.2); NEUT % 89.1 % (42.8-82.8); PLATELET COUNT 258 10^3/uL (134-434); RDW 15.7 % (11.9-15.9); WHITE BLOOD COUNT 6.3 K/mm3 (4.0-10.0)
[2023-12-13 18:50] LABS: POTASSIUM 4.3 mmol/L (3.5-5.1)
[2023-12-13 18:52] LABS: CALCIUM 9.8 mg/dL (8.5-10.1)
[2023-12-13 18:53] LABS: ALBUMIN 3.9 g/dl (3.4-5.0); BLOOD UREA NITROGEN 25.7 mg/dL (7-18); MAGNESIUM 1.9 mg/dL (1.8-2.4)
[2023-12-13 18:56] LABS: CREATININE 1.5 mg/dL (0.55-1.3)
[2023-12-13 18:57] LABS: BILIRUBIN,TOTAL 0.8 mg/dL (0.2-1); TOT PROT 7.9 g/dl (6.4-8.2)
[2023-12-13 19:45] LABS: HIV INTERPRETATION NEGATIVE (NEGATIVE)
[2023-12-14] MEDS ORDERED: ONDANSETRON 4 MG/2 ML VIAL IVPUSH PRN (00:05)
[2023-12-14] MEDS: SODIUM CHLORIDE 1,000 ML IV SCH (02:00)
[2023-12-14] MEDS ORDERED: HEPARIN NA (PORCINE) 5,000 UNITS/ML 1ML VIAL ONE (06:23)
[2023-12-14] MEDS: HEPARIN NA (PORCINE) 5,000 UNITS/ML 1ML VIAL SQ SCH (06:27)
[2023-12-14 08:46] LABS: HEMATOCRIT 29.7 % (35.4-49); HEMOGLOBIN 9.5 GM/dL (11.7-16.9); MCHC 32.1 g/dl (32.0-35.9); MEAN CELL VOLUME 90.4 fl (80-96); MEAN PLT VOLUME 6.9 fl (7.5-11.1); PLATELET COUNT 207 10^3/uL (134-434); RBC 3.29 M/mm3 (4.00-5.60); RDW 15.5 % (11.9-15.9); WHITE BLOOD COUNT 4.3 K/mm3 (4.0-10.0)
[2023-12-14] MEDS ORDERED: METOCLOPRAMIDE HCL INJECTION 10 MG/2 ML VIAL IVPUSH PRN (08:59)
[2023-12-14 09:02] LABS: POTASSIUM 4.3 mmol/L (3.5-5.1)
[2023-12-14 09:07] LABS: BLOOD UREA NITROGEN 26.2 mg/dL (7-18); CALCIUM 8.7 mg/dL (8.5-10.1); MAGNESIUM 1.8 mg/dL (1.8-2.4)
[2023-12-14 09:10] LABS: ALBUMIN 3.1 g/dl (3.4-5.0)
[2023-12-14 09:12] LABS: CREATININE 1.1 mg/dL (0.55-1.3); PHOSPHOROUS 3.4 mg/dL (2.5-4.9)
[2023-12-14 09:14] LABS: BILIRUBIN,TOTAL 0.7 mg/dL (0.2-1); TOT PROT 6.2 g/dl (6.4-8.2)
[2023-12-14] MEDS ORDERED: HEPARIN NA (PORCINE) 5,000 UNITS/ML 1ML VIAL SQ SCH (10:00)
[2023-12-14] MEDS: LACTATED RINGERS SOLUTION 1,000 ML/1,000 ML INFUS.BAG IV SCH ×2 (11:45→17:00)
[2023-12-14] MEDS: ALPRAZolam 0.25 MG TABLET PO SCH (11:46)
[2023-12-14] MEDS: ALLOPURINOL 100 MG TABLET (FP) PO SCH (11:46)
[2023-12-14] MEDS: FAMOTIDINE 20 MG TABLET PO SCH (11:46)
[2023-12-14] MEDS ORDERED: LIDOCAINE VISCOUS 2% ORAL/TOP 15 ML UNIT-DOSE CUP ONE (13:14)
[2023-12-14] MEDS: LIDOCAINE VISCOUS 2% ORAL/TOP 15 ML UNIT-DOSE CUP MM ONE (13:18)
[2023-12-14] MEDS ORDERED: ACETAMINOPHEN 1000 MG/100 ML BAG IVPB PRN (16:11)
[2023-12-14] MEDS ORDERED: METOCLOPRAMIDE HCL INJECTION 10 MG/2 ML VIAL ONE (18:49)
[2023-12-14] MEDS: METOCLOPRAMIDE HCL INJECTION 10 MG/2 ML VIAL IVPUSH SCH (19:00)
[2023-12-15 08:42] LABS: HEMATOCRIT 28.3 % (35.4-49); HEMOGLOBIN 9.3 GM/dL (11.7-16.9); MCH 29.3 pg (25.7-33.7); MCHC 32.6 g/dl (32.0-35.9); MEAN CELL VOLUME 89.7 fl (80-96); PLATELET COUNT 173 10^3/uL (134-434); RBC 3.16 M/mm3 (4.00-5.60); RDW 15.4 % (11.9-15.9); WHITE BLOOD COUNT 3.1 K/mm3 (4.0-10.0)
[2023-12-15 09:01] LABS: CALCIUM 8.5 mg/dL (8.5-10.1)
[2023-12-15 09:02] LABS: ALBUMIN 2.8 g/dl (3.4-5.0); BLOOD UREA NITROGEN 22.8 mg/dL (7-18)
[2023-12-15 09:03] LABS: MAGNESIUM 1.6 mg/dL (1.8-2.4)
[2023-12-15 09:04] LABS: BILIRUBIN,DIRECT 0.3 mg/dL (0.0-0.2)
[2023-12-15 09:05] LABS: CREATININE 1.2 mg/dL (0.55-1.3); PHOSPHOROUS 3.2 mg/dL (2.5-4.9)
[2023-12-15 09:06] LABS: BILIRUBIN,TOTAL 0.9 mg/dL (0.2-1); TOT PROT 5.6 g/dl (6.4-8.2)
[2023-12-15 09:51] VITALS: RESP 18
[2023-12-15] MEDS: ONDANSETRON 4 MG/2 ML VIAL IVPUSH SCH (12:02)
[2023-12-15] MEDS: MIRTAZAPINE 15 MG TABLET (FP) PO SCH (14:35)
[2023-12-15 16:23] VITALS: BMI 26.4
[2023-12-16] MEDS: LACTATED RINGERS SOLUTION 1,000 ML/1,000 ML INFUS.BAG IV SCH (08:26)
[2023-12-16 09:12] LABS: HEMOGLOBIN 9.1 GM/dL (11.7-16.9); MCH 29.6 pg (25.7-33.7); MCHC 33.6 g/dl (32.0-35.9); MEAN CELL VOLUME 88.1 fl (80-96); PLATELET COUNT 176 10^3/uL (134-434); RBC 3.06 M/mm3 (4.00-5.60); RDW 15.6 % (11.9-15.9); WHITE BLOOD COUNT 3.5 K/mm3 (4.0-10.0)
[2023-12-16 09:40] LABS: POTASSIUM 4.2 mmol/L (3.5-5.1)
[2023-12-16 09:45] LABS: CALCIUM 8.7 mg/dL (8.5-10.1)
[2023-12-16 09:46] LABS: BLOOD UREA NITROGEN 22.9 mg/dL (7-18); MAGNESIUM 1.8 mg/dL (1.8-2.4)
[2023-12-16 09:49] LABS: CREATININE 1.3 mg/dL (0.55-1.3); PHOSPHOROUS 3.5 mg/dL (2.5-4.9)
[2023-12-16] MEDS ORDERED: POLYETHYLENE GLYCOL (HEALTHYLAX) 3350 17 GM PACKET PO PRN (16:52)
[2023-12-17 11:23] VITALS: BP 98/67; PULSE 74; TEMP 98.4
== END 2023-12-17 11:44 | disposition home health service (06) ==
LOC: JER 13:55 → JERBED 22:52 → OBSVTOIN 12-14 00:01 → INTOOBSV 12-14 00:01 → J7W 12-14 22:52
PROVIDERS: ADMIT Student in an Organized Health Care Education/Training Program; ATTEND Internal Medicine
DX: T45.1X5A Adverse effect of antineoplastic and immunosuppressive drugs, initial encounter (principal); R11.2 Nausea with vomiting, unspecified; C14.0 Malignant neoplasm of pharynx, unspecified; R62.7 Adult failure to thrive; Z85.46 Personal history of malignant neoplasm of prostate; X58.XXXA Exposure to other specified factors, initial encounter; N17.9 Acute kidney failure, unspecified; R79.89 Other specified abnormal findings of blood chemistry; Z88.5 Allergy status to narcotic agent
CPT/HCPCS: 36415; 80048; 80053; 80076; 83735; 84100; 85025; 85027; 86803; 87389; 93005; 93010; 97116-GP; 97161-GP; 99285-25; G0378; J0131; J1644

== ENCOUNTER 2023-12-21 12:49 | Day surgery (SDC) | payer OTHER ==
[2023-12-21 13:16] LABS: BASO % 0.2 % (0-2.0); EOS % 2.6 % (0-4.5); HEMATOCRIT 32.6 % (35.4-49); HEMOGLOBIN 10.9 GM/dL (11.7-16.9); LYMPH % 6.3 % (8-40); MCH 29.7 pg (25.7-33.7); MCHC 33.4 g/dl (32.0-35.9); MEAN CELL VOLUME 89.1 fl (80-96); MEAN PLT VOLUME 6.6 fl (7.5-11.1); MONO % 8.1 % (3.8-10.2); NEUT % 82.8 % (42.8-82.8); PLATELET COUNT 255 10^3/uL (134-434); RBC 3.65 M/mm3 (4.00-5.60); WHITE BLOOD COUNT 3.8 K/mm3 (4.0-10.0)
[2023-12-21] MEDS: SODIUM CHLORIDE 1,000 ML IV ONE (13:39)
[2023-12-21 13:44] LABS: CHLORIDE 105 mmol/L (98-107); POTASSIUM 5.1 mmol/L (3.5-5.1); SODIUM 142 mmol/L (136-145)
[2023-12-21 13:46] LABS: ANION GAP 6 mmol/L (4-13); CALCIUM 9.5 mg/dL (8.5-10.1); CO2 31 mmol/L (21-32)
[2023-12-21 13:47] LABS: BLOOD UREA NITROGEN 23.7 mg/dL (7-18); GLUCOSE,RANDOM 111 mg/dL (74-106)
[2023-12-21 13:49] LABS: BILIRUBIN,DIRECT 0.2 mg/dL (0.0-0.2); CREATININE 1.6 mg/dL (0.55-1.3); SGOT/AST 13 U/L (15-37); SGPT/ALT 16 U/L (13-61)
[2023-12-21 13:51] LABS: BILIRUBIN,TOTAL 0.7 mg/dL (0.2-1); TOT PROT 7.2 g/dl (6.4-8.2)
[2023-12-21 13:52] LABS: ALK PHOS 72 U/L (45-117)
[2023-12-21 13:58] LABS: ALBUMIN 3.6 g/dl (3.4-5.0)
[2023-12-21] MEDS: FOSAPREPITANT DIMEGLUMINE 150 MG in SODIUM CHLORIDE 145 ML IVPB ONE (14:46)
[2023-12-21] MEDS: DEXAMETHASONE SODIUM PHOSPHATE 10 MG in SODIUM CHLORIDE 50 ML IVPB ONE (15:25)
[2023-12-21] MEDS: PALONOSETRON HCL 0.25 MG/5 ML VIAL IVPUSH ONE (15:50)
[2023-12-21] MEDS: CISPLATIN IV ONE (15:55)
[2023-12-21] MEDS: SODIUM CHLORIDE IV ONE (15:55)
[2023-12-21] MEDS: POTASSIUM CHLORIDE 10 MEQ, MAGNESIUM SULFATE 1 GM in SODIUM CHLORIDE 1,000 ML IVPB ONE (16:59)
[2023-12-21 18:32] VITALS: TEMP 97.5
[2023-12-21 18:58] VITALS: BP 123/77; PULSE 85; RESP 18
[2023-12-21] MEDS: PORTA CATH FLUSH 10 ML IVPUSH PRN (18:59)
== END 2023-12-21 19:04 | disposition home or self-care (01) ==
LOC: JONCCHEMO 12:49 → J7W 12:50 → JONCCHEMO 19:04
PROVIDERS: ATTEND Internal Medicine Hematology & Oncology
PROC: 3E0437Z Introduction of Electrolytic and Water Balance Substance into Central Vein, Percutaneous Approach (ICD-10-PCS; principal; 2023-12-21)
PROC: 3E043GC Introduction of Other Therapeutic Substance into Central Vein, Percutaneous Approach (ICD-10-PCS; 2023-12-21)
PROC: 3E04305 Introduction of Other Antineoplastic into Central Vein, Percutaneous Approach (ICD-10-PCS; 2023-12-21)
PROC: 3E0437Z Introduction of Electrolytic and Water Balance Substance into Central Vein, Percutaneous Approach (ICD-10-PCS; 2023-12-21)
PROC: 3E043GC Introduction of Other Therapeutic Substance into Central Vein, Percutaneous Approach (ICD-10-PCS; 2023-12-21)
PROC: 3E04305 Introduction of Other Antineoplastic into Central Vein, Percutaneous Approach (ICD-10-PCS; 2023-12-21)
DX: Z51.11 Encounter for antineoplastic chemotherapy (principal); C01 Malignant neoplasm of base of tongue
CPT/HCPCS: 96361; 96365; 96366; 96367; 96413; J9999; 36415; 80048; 80076; 83735; 85025; J1453